=== PATIENT | male | born 1985 | race Caucasian/White ===

== ENCOUNTER 2021-08-09 18:23 | Inpatient (IN) ==
--- NOTE | 2021-08-09 18:44 | Emergency Department Note ---
Impression & Plan Rhabdomyolysis, Margaret, Schizophrenia ED Provider Note Provider: Lauro Tomas MD DATE OF SERVICE: 08/09/2021 CHIEF COMPLAINT: Mental health evaluation, "I feel fine" HISTORY OF PRESENT ILLNESS: Patient is a 36-year-old gentleman history of schizophrenia seen here last month in the ER presenting today brought for mental health evaluation with a 302 petitioning statement. Patient states that he feels fine. Patient denies any depression, anxiety, or thoughts wanting to harm self or others. Patient states he is just at home and was watching the [id number]. Patient denies any drug or alcohol use. Denies any fall. Denies any headache. Patient states he lives at home with his girlfriend Antonia. Patient states that there may have been some stress regarding the cat who seemed a littl e unwell when she was coming in from outside. Patient denies hurting Antonia. Patient states he did hit a hammer on various pieces of furniture but denies hurting himself with this or attempting to hurt anybody else. Patient states that he also generally is at home with his uncle but states his uncle was recently taken away by a person " code named Demi". Patient states when he was discharged from here is on some medication but did better and thus stopped this medication. Patient states he did take it a day but states he has a few more tablets at home. Patient states he does not feel that he needed it anymore. Patient states that he did take his girlfriend to visit his doctor Dr. Pinedo" recently but does not know the date. Patient states he does not believe that he needs inpatient treatment at this time. REVIEW OF SYSTEMS: A total of 10 review of systems was obtained and negative e xcept as stated above in the HPI. PAST MEDICAL HISTORY: As noted above MEDICATIONS: Patient recently discharged on Zyprexa but by his own admission states has not been taking it at least today SOCIAL HISTORY: Denies tobacco use or drug use. PHYSICAL EXAM: GENERAL: alert and oriented ambulatory in the room walking around. Head: normocephalic and atraumatic EYES: No injection, discharge or icterus. NECK: Trachea midline. Supple. ENT: Mucous membranes pink and moist. LUNGS: Airway patent. No retractions. Breath sounds clear with good air entry bilaterally. HEART: Regular mildly tachycardic rate and rhythm. No chest wall tenderness SKIN: Acyanotic, warm, dry, without rashes EXTREMITIES: Without swelling, tenderness or deformity in particular the right upper extremity or hand. NEUROLOGICAL: No focal deficits. No aphasia. No facial droop or slurred speech. Ambulatory. Psych: Patient pacing in the room and denies any SI or HI at this time. Patient does make some grandiose statements at times but not obviously responding to external stimuli at least during my conversation. EK bpm sinus tachycardia. No PVC or PAC. No acute ST segment elevation or depression with a QTC of 465. Patient's laboratory studies reviewed. Differential includes Mood disorder, infection, hypoglycemia, electrolyte abnormalities, cardiac sources, intracerebral event, toxicologic, trauma, neuro logic, as well as other pathologies. IMPRESSION/MEDICAL DECISION MAKING: Patient with history of schizophrenia and reportedly has not been taking his medications. 302 statement reviewed and indicates that his girlfriend Antonia felt unsafe at home with him. Patient denies going to harm self or others. Did make some illusion to using a hammer to hit something but denies again that he wanted to harm anyone. Some of his statements are a little odd and question if he does have some underlying psychosis but does not appear frankly manic at this juncture on my initial interview. Basic labs were obtained. There is no evidence of focal deficit concerning for stroke and there is no reported trauma history concerning for occult trauma at this time. Seen with the case management team. Blood work returns with no anemia but a moderate white blood cell ovation of 20.9. He is afebrile here and denies any significant infectious symptoms or difficulty breathing. He is not hypoxic. Urinalysis not impressive for infection. Covid test was sent. Question if this is more reactive to some of his underlying agitation issues. He has been at this point cooperative here and not aggressive. Case management does reach out to the patient's father and girlfriend. Evidently his father states he has taken the patient's uncle away from the home to [facility] to live given the patient's recent issues. Patient's father wonders if perhaps some longer acting medicine that has less compliance issues may be more beneficial for him. Blood work does return with mild ALT AST elevation but significantly CK elevation over one thousand. Given the patient's somewhat manic state wonder if this has prompted a little bit of rhabdomyolysis. Discussed with the patient and believe IV hydration avoid renal injury is indicated. Discussed with the hospitalist. Patient was begrudgingly agreement for this plan. Patient will need further psychiatric care when medically clear. DIAGNOSIS: Rhabdomyolysis, schizophrenia DISPOSITION: Being evaluated by the hospitalist Past Med/Surg History Medical History Schizophrenia Surgical History H/O abdominal surgery Family History Other Diabetes Social History (Updated 08/09/21 @ 21:46 by Sarah Nobles PA-C) Smoking Status: Never smoker Hx Alcohol Use: No Hx Substance Use: No Current Living Situation: Significant Other Feels Safe at Home: Yes Allergies Allergies Allergy/AdvReac Type Severity Reaction Status Date / Time Penicillins Allergy Mild Rash Verified 07/06/21 07:00 Home Meds Home Medications Medication Instructions Recorded Confirmed melatonin 1 mg tablet 0 mg PO HS 07/06/21 07/06/21 multivitamin 0 tab PO DAILY 07/06/21 07/06/21 Previous Rx's Medication Instructions Recorded olanzapine 2.5 mg tablet (Zyprexa) 2.5 mg PO .AM #30 tab 07/09/21 olanzapine 2.5 mg tablet (Zyprexa) 2.5 mg PO .am #30 tab 07/09/21 olanzapine 5 mg tablet (Zyprexa) 5 mg PO HS #30 tab 07/09/21 olanzapine 5 mg tablet (Zyprexa) 5 mg PO HS #30 tab 07/09/21 Results & Data (ED) Vital Signs Vital Signs - 24 hr 08/09/21 18:24 08/09/21 20:49 Temperature 37.2 C Temperature Source Oral Pulse Rate 140 H Pulse Rate [Left] 136 H Pulse Rhythm [Left] Regular Pulse Strength [Left] Normal Respiratory Rate 20 20 Respiratory Effort / Characteristics Non-Labored Respiratory Depth Normal Blood Pressure 147/97 H Blood Pressure [Left Arm] 163/113 H Blood Pressure Mean 113 Blood Pressure Mean [Left Arm] 129 Blood Pressure Position [Left Arm] Sitting Pulse Oximetry 99 95 Oxygen Delivery Method Room Air Room Air Sepsis Recent Fever Within 48 Hours No Sepsis New/Unexplained Change in Mental Status N/A Sepsis Action Taken by Nursing No Action Required Laboratory Data Result diagrams: 08/09/21 19:17 08/09/21 19:17 Lab Results 08/09/21 08/09/21 08/09/21 Range/Units 18:25 18:25 19:17 WBC 20.93 H (4.8-10.8) K/uL RBC 5.28 (4.7-6.1) M/uL Hgb 15.8 (14.0-18.0) g/dL Hct 47.1 (42-52) % MCV 89.2 (80-100) fL MCH 29.9 (25-34) pg MCHC 33.5 (32-36) g/dL RDW Std Deviation 48.5 H (36.4-46.3) fL RDW Coeff of Bev 14.8 H (11.5-14.5) % Plt Count 320 (130-400) K/uL MPV 9.8 (7.4-10.4) fL Immature Gran % (Auto) 0.5 % Neut % (Auto) 85.7 % Lymph % (Auto) 7.6 % Chambers % (Auto) 5.9 % Eos % (Auto) 0.1 % Baso % (Auto) 0.2 % Neut # (Auto) 17.93 H (1.4-6.5) K/uL Lymph # (Auto) 1.60 (1.2-3.4) K/uL Chambers # (Auto) 1.23 H (0.11-0.59) K/uL Eos # (Auto) 0.03 (0-0.5) K/uL Baso # (Auto) 0.04 (0-0.2) K/uL Immature Gran # (Auto) 0.10 H (0.00-0.02) K/uL Sodium (136-145) mmol/L Potassium (3.5-5.1) mmol/L Chloride (98-107) mmol/L Carbon Dioxide (21-32) mmol/L Anion Gap (3-11) BUN (7-18) mg/dl Creatinine (0.6-1.4) mg/dl Est Cr Clr Drug Dosing ml/min Est GFR ( Amer) ml/min Est GFR (Non-Af Amer) ml/min BUN/Creatinine Ratio (10-20) Glucose (70-99) mg/dl Calcium (8.5-10.1) mg/dl Magnesium (1.8-2.4) mg/dl Total Bilirubin (0.2-1) mg/dl AST (15-37) U/L ALT (12-78) U/L Alkaline Phosphatase (45-117) U/L Total Creatine Kinase (39-308) U/L Troponin I (0-0.045) ng/ml Total Protein (6.4-8.2) gm/dl Albumin (3.4-5.0) gm/dl Globulin (2.5-4.0) gm/dl Albumin/Globulin Ratio (0.9-2) Procalcitonin (0-0.5) ng/ml TSH (0.300-4.500) uIu/ml Urine Color Yellow Urine Appearance Clear (Clear) Urine pH 5.5 (4.5-7.5) Ur Specific [place] 1.018 (1.000-1.030) Urine Protein Negative (Negative) Urine Glucose (UA) Negative (Negative) Urine Ketones Negative (Negative) Urine Blood Trace H (Negative) Urine Nitrite Negative (Negative) Urine Bilirubin Negative (Negative) Urine Urobilinogen Negative (Negative) Ur Leukocyte Esterase Negative (Negative) Urine WBC (Auto) 1-5 (0-5) /hpf Urine RBC (Auto) 0-4 (0-4) /hpf U Hyaline Cast (Auto) 0 (0-5) /lpf U Epithel Cells (Auto) 0-5 (0-5) /lpf Urine Bacteria (Auto) Negative (Negative) Salicylates (2.8-20) mg/dl Urine Opiates Screen Neg (Neg) Ur Methadone, Qual Neg (Neg) Acetaminophen (10-30) ug/ml Urine Barbiturates Neg (Neg) Ur Phencyclidine (PCP) Neg (Neg) U Amphetamin/Meth Scrn Neg (Neg) MDMA (Ecstasy) Screen Neg (Neg) U Benzodiazepines Scrn Neg (Neg) Ur Cocaine Metabolite Neg (Neg) U Marijuana (THC) Screen Neg (Neg) Ethyl Alcohol mg/dL (0-3) mg/dl SARS-CoV-2, RNA, NAAT (NEGATIVE) 08/09/21 08/09/21 08/09/21 Range/Units 19:17 19:17 19:17 WBC (4.8-10.8) K/uL RBC (4.7-6.1) M/uL Hgb (14.0-18.0) g/dL Hct (42-52) % MCV (80-100) fL MCH (25-34) pg MCHC (32-36) g/dL RDW Std Deviation (36.4-46.3) fL RDW Coeff of Bev (11.5-14.5) % Plt Count (130-400) K/uL MPV (7.4-10.4) fL Immature Gran % (Auto) % Neut % (Auto) % Lymph % (Auto) % Chambers % (Auto) % Eos % (Auto) % Baso % (Auto) % Neut # (Auto) (1.4-6.5) K/uL Lymph # (Auto) (1.2-3.4) K/uL Chambers # (Auto) (0.11-0.59) K/uL Eos # (Auto) (0-0.5) K/uL Baso # (Auto) (0-0.2) K/uL Immature Gran # (Auto) (0.00-0.02) K/uL Sodium 136 (136-145) mmol/L Potassium 4.0 (3.5-5.1) mmol/L Chloride 103 (98-107) mmol/L Carbon Dioxide 27 (21-32) mmol/L Anion Gap 6.0 (3-11) BUN 16 (7-18) mg/dl Creatinine 1.20 (0.6-1.4) mg/dl Est Cr Clr Drug Dosing 82.3 ml/min Est GFR ( Amer) 89.6 ml/min Est GFR (Non-Af Amer) 77.3 ml/min BUN/Creatinine Ratio 13.5 (10-20) Glucose 161 H (70-99) mg/dl Calcium 9.6 (8.5-10.1) mg/dl Magnesium 2.3 (1.8-2.4) mg/dl Total Bilirubin 0.5 (0.2-1) mg/dl AST 44 H (15-37) U/L ALT 86 H (12-78) U/L Alkaline Phosphatase 89 (45-117) U/L Total Creatine Kinase 1158 H (39-308) U/L Troponin I < 0.015 (0-0.045) ng/ml Total Protein 7.6 (6.4-8.2) gm/dl Albumin 3.6 (3.4-5.0) gm/dl Globulin 4.0 (2.5-4.0) gm/dl Albumin/Globulin Ratio 0.9 (0.9-2) Procalcitonin (0-0.5) ng/ml TSH 0.765 (0.300-4.500) uIu/ml Urine Color Urine Appearance (Clear) Urine pH (4.5-7.5) Ur Specific [place] (1.000-1.030) Urine Protein (Negative) Urine Glucose (UA) (Negative) Urine Ketones (Negative) Urine Blood (Negative) Urine Nitrite (Negative) Urine Bilirubin (Negative) Urine Urobilinogen (Negative) Ur Leukocyte Esterase (Negative) Urine WBC (Auto) (0-5) /hpf Urine RBC (Auto) (0-4) /hpf U Hyaline Cast (Auto) (0-5) /lpf U Epithel Cells (Auto) (0-5) /lpf Urine Bacteria (Auto) (Negative) Salicylates < 1.7 L (2.8-20) mg/dl Urine Opiates Screen (Neg) Ur Methadone, Qual (Neg) Acetaminophen < 2 L (10-30) ug/ml Urine Barbiturates (Neg) Ur Phencyclidine (PCP) (Neg) U Amphetamin/Meth Scrn (Neg) MDMA (Ecstasy) Screen (Neg) U Benzodiazepines Scrn (Neg) Ur Cocaine Metabolite (Neg) U Marijuana (THC) Screen (Neg) Ethyl Alcohol mg/dL < 3.0 (0-3) mg/dl SARS-CoV-2, RNA, NAAT (NEGATIVE) 08/09/21 08/09/21 Range/Units 19:20 19:24 WBC (4.8-10.8) K/uL RBC (4.7-6.1) M/uL Hgb (14.0-18.0) g/dL Hct (42-52) % MCV (80-100) fL MCH (25-34) pg MCHC (32-36) g/dL RDW Std Deviation (36.4-46.3) fL RDW Coeff of Bev (11.5-14.5) % Plt Count (130-400) K/uL MPV (7.4-10.4) fL Immature Gran % (Auto) % Neut % (Auto) % Lymph % (Auto) % Chambers % (Auto) % Eos % (Auto) % Baso % (Auto) % Neut # (Auto) (1.4-6.5) K/uL Lymph # (Auto) (1.2-3.4) K/uL Chambers # (Auto) (0.11-0.59) K/uL Eos # (Auto) (0-0.5) K/uL Baso # (Auto) (0-0.2) K/uL Immature Gran # (Auto) (0.00-0.02) K/uL Sodium (136-145) mmol/L Potassium (3.5-5.1) mmol/L Chloride (98-107) mmol/L Carbon Dioxide (21-32) mmol/L Anion Gap (3-11) BUN (7-18) mg/dl Creatinine (0.6-1.4) mg/dl Est Cr Clr Drug Dosing ml/min Est GFR ( Amer) ml/min Est GFR (Non-Af Amer) ml/min BUN/Creatinine Ratio (10-20) Glucose (70-99) mg/dl Calcium (8.5-10.1) mg/dl Magnesium (1.8-2.4) mg/dl Total Bilirubin (0.2-1) mg/dl AST (15-37) U/L ALT (12-78) U/L Alkaline Phosphatase (45-117) U/L Total Creatine Kinase (39-308) U/L Troponin I (0-0.045) ng/ml Total Protein (6.4-8.2) gm/dl Albumin (3.4-5.0) gm/dl Globulin (2.5-4.0) gm/dl Albumin/Globulin Ratio (0.9-2) Procalcitonin 0.12 (0-0.5) ng/ml TSH (0.300-4.500) uIu/ml Urine Color Urine Appearance (Clear) Urine pH (4.5-7.5) Ur Specific [place] (1.000-1.030) Urine Protein (Negative) Urine Glucose (UA) (Negative) Urine Ketones (Negative) Urine Blood (Negative) Urine Nitrite (Negative) Urine Bilirubin (Negative) Urine Urobilinogen (Negative) Ur Leukocyte Esterase (Negative) Urine WBC (Auto) (0-5) /hpf Urine RBC (Auto) (0-4) /hpf U Hyaline Cast (Auto) (0-5) /lpf U Epithel Cells (Auto) (0-5) /lpf Urine Bacteria (Auto) (Negative) Salicylates (2.8-20) mg/dl Urine Opiates Screen (Neg) Ur Methadone, Qual (Neg) Acetaminophen (10-30) ug/ml Urine Barbiturates (Neg) Ur Phencyclidine (PCP) (Neg) U Amphetamin/Meth Scrn (Neg) MDMA (Ecstasy) Screen (Neg) U Benzodiazepines Scrn (Neg) Ur Cocaine Metabolite (Neg) U Marijuana (THC) Screen (Neg) Ethyl Alcohol mg/dL (0-3) mg/dl SARS-CoV-2, RNA, NAAT NEGATIVE (NEGATIVE) Administered Medications Discontinued Medications Clonidine HCl (Clonidine Hcl 0.1 Mg Tab) 0.1 mg PO NOW ONE Stop: 08/09/21 21:14 Last Admin: 08/09/21 21:33 Dose: 0.1 mg Documented by: [id number] Sodium Chloride (Nss 1000ml) 1,000 mls @ 999 mls/hr IV .[id number] ONE Stop: 08/09/21 21:32 Last Infusion: 08/09/21 21:46 Dose: 0 mls/hr Documented by: [id number] Admin: 08/09/21 20:45 Dose: 999 mls/hr Documented by: [id number] Discharge Plan Visit Data Chief Complaint: Mental Health Evaluation Stated Complaint: Mental Health Eval ED Provider: Lauro Tomas Discharge Problem: Rhabdomyolysis, Margaret, Schizophrenia Patient Disposition: Admitted As Inpatient Discharge Instructions Interventions: ED Discharge Assessment Last Done: 08/09/21 22:45
[2021-08-09 19:37] LABS: Basophils # (auto) 0.04 K/uL (0-0.2); Basophils % (auto) 0.2 %; Eosinophils # (auto) 0.03 K/uL (0-0.5); Eosinophils % (auto) 0.1 %; Hematocrit (blood only) 47.1 % (42-52); Hemoglobin 15.8 g/dL (14.0-18.0); Immature Granulocytes % (auto) 0.5 %; Lymphocytes % (auto) 7.6 %; Mean Corpuscular Hemoglobin 29.9 pg (25-34); Mean Corpuscular Hgb Conc 33.5 g/dL (32-36); Mean Corpuscular Volume 89.2 fL (80-100); Mean Platelet Volume 9.8 fL (7.4-10.4); Monocytes # (auto) 1.23 K/uL (0.11-0.59); Monocytes % (auto) 5.9 %; Neutrophils # (auto) 17.93 K/uL (1.4-6.5); Neutrophils % (auto) 85.7 %; Platelet Count 320 K/uL (130-400); RDW Coefficient of Variation 14.8 % (11.5-14.5); RDW Standard Deviation 48.5 fL (36.4-46.3); Red Blood Count 5.28 M/uL (4.7-6.1); White Blood Count 20.93 K/uL (4.8-10.8)
[2021-08-09 19:41] LABS: Appearance Urine Clear (Clear); Bacteria Urine Automated Negative (Negative); Bilirubin Urine Negative (Negative); Blood Urine Trace (Negative); Cast Urine Automated 0 /lpf (0-5); Color Urine Yellow; Epithelial Cell Urine Auto 0-5 /lpf (0-5); Glucose Urine UA Negative (Negative); Ketones Urine Negative (Negative); Leukocyte Esterase Urine Negative (Negative); Nitrite Urine Negative (Negative); Protein Urine Negative (Negative); RBC Urine Automated 0-4 /hpf (0-4); Specific Gravity Urine 1.018 (1.000-1.030); Urobilinogen Urine Negative (Negative); pH Urine 5.5 (4.5-7.5)
[2021-08-09 19:53] LABS: Albumin Level 3.6 gm/dl (3.4-5.0); Blood Urea Nitrogen 16 mg/dl (7-18); Calcium 9.6 mg/dl (8.5-10.1); Carbon Dioxide 27 mmol/L (21-32); Chloride 103 mmol/L (98-107); Glucose 161 mg/dl (70-99); Sodium 136 mmol/L (136-145)
[2021-08-09 19:56] LABS: Alanine Aminotransferase 86 U/L (12-78); Aspartate Aminotransferase 44 U/L (15-37); BUN Creatinine Ratio 13.5 (10-20); Creatinine Clr Calc Pharmacy 82.3 ml/min; Est GFR (African American) 89.6 ml/min; Est GFR (Non-African American) 77.3 ml/min
[2021-08-09 20:04] LABS: Acetaminophen < 2 ug/ml (10-30); Salicylate < 1.7 mg/dl (2.8-20)
[2021-08-09 20:12] LABS: Amphetamines+Metham, Urine Neg (Neg); Barbiturates, Urine Neg (Neg); Benzodiazepine, Urine Neg (Neg); Cocaine, Urine Neg (Neg); MDMA (Ecstacy), Urine Neg (Neg); Methadone, Urine Neg (Neg); Opiate, Urine Neg (Neg); Phencyclidine, Urine Neg (Neg)
[2021-08-09 20:15] LABS: Albumin Globulin Ratio 0.9 (0.9-2); Alkaline Phosphatase 89 U/L (45-117); Bilirubin,Total 0.5 mg/dl (0.2-1); Creatine Kinase 1158 U/L (39-308); Thyroid Stimulating Hormone 0.765 uIu/ml (0.300-4.500); Total Protein 7.6 gm/dl (6.4-8.2); Troponin I < 0.015 ng/ml (0-0.045)
[2021-08-09] MEDS ORDERED: SODIUM CHLORIDE 0.9% 1000ML 1,000 ML IV ONE (20:32)
[2021-08-09 20:59] LABS: Magnesium 2.3 mg/dl (1.8-2.4)
[2021-08-09] MEDS ORDERED: cloNIDine HCL 0.1 MG TAB PO ONE (21:13)
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
[2021-08-09] MEDS ORDERED: OLANZapine 10 MG/2.1 ML SDV IM PRN (21:41)
[2021-08-09] MEDS ORDERED: PROMETHAZINE HCL 12.5 MG in SODIUM CHLORIDE 0.9% 50 ML IV PRN (23:12)
[2021-08-09] MEDS ORDERED: ACETAMINOPHEN 325 MG TAB PO PRN (23:12)
[2021-08-10] MEDS ORDERED: MELATONIN 3 MG TAB PO ONE (00:30)
[2021-08-10] MEDS: LACTATED RINGER'S 1,000 ML IV SCH ×3 (00:33→19:57)
[2021-08-10 06:59] LABS: Estimated Average Glucose 140 mg/dl; Hemoglobin A1C 6.5 % (4.5-5.6)
[2021-08-10] MEDS ORDERED: FLUARIX QUADRIVALENT 0.5 ML SYR IM ONE (09:00)
[2021-08-10 09:11] LABS: Basophils # (auto) 0.03 K/uL (0-0.2); Basophils % (auto) 0.2 %; Eosinophils # (auto) 0.11 K/uL (0-0.5); Eosinophils % (auto) 0.9 %; Hematocrit (blood only) 44.3 % (42-52); Hemoglobin 14.6 g/dL (14.0-18.0); Immature Granulocytes # (auto) 0.04 K/uL (0.00-0.02); Immature Granulocytes % (auto) 0.3 %; Lymphocytes # (auto) 2.02 K/uL (1.2-3.4); Lymphocytes % (auto) 16.2 %; Mean Corpuscular Hemoglobin 29.9 pg (25-34); Mean Corpuscular Volume 90.8 fL (80-100); Mean Platelet Volume 10.1 fL (7.4-10.4); Monocytes # (auto) 0.68 K/uL (0.11-0.59); Monocytes % (auto) 5.5 %; Neutrophils # (auto) 9.59 K/uL (1.4-6.5); Neutrophils % (auto) 76.9 %; Platelet Count 281 K/uL (130-400); RDW Coefficient of Variation 15.2 % (11.5-14.5); RDW Standard Deviation 51.1 fL (36.4-46.3); Red Blood Count 4.88 M/uL (4.7-6.1); White Blood Count 12.47 K/uL (4.8-10.8)
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
[2021-08-10 09:42] LABS: Albumin Globulin Ratio 0.8 (0.9-2); BUN Creatinine Ratio 12.4 (10-20); Bilirubin,Total 0.6 mg/dl (0.2-1); Calcium 8.6 mg/dl (8.5-10.1); Est GFR (African American) 92.4 ml/min; Est GFR (Non-African American) 79.7 ml/min; Globulin 3.7 gm/dl (2.5-4.0); Total Protein 6.7 gm/dl (6.4-8.2)
[2021-08-10] MEDS: ENOXAPARIN INJ 40 MG/0.4 ML SYR SQ SCH (10:13)
[2021-08-10 10:26] LABS: Potassium 4.1 mmol/L (3.5-5.1)
--- NOTE | 2021-08-10 13:34 | Hospitalist Progress Note ---
Date of Service August 10, 2021 Assessment & Plan (1) Schizophrenia: Plan: Present on admission after having psychosis behavior Pt stopped taking his Olanzapine 3 days ago Psych on board Pt 302 warrant until medical clearance He is not allowed to leave the hospital AMA as per psych Pt will need inpatient hospitalization for monitoring/stabilization (2) Rhabdomyolysis: Plan: CK level on admission 1158 on admission Currently on IVF CK level 799 Will D/C IVF medically stable to transfer to psych (3) Leukocytosis: Plan: WBC elevated at 20.93K Mostly reactive WBC 12.4K today Procalcitonin within normal No sign of infection Elevated BP BP has been fluctuated Possible related to hospital setting Will consider to start amlodipine 5 mg daily Continue monitor BP DM type 2 Most recent Hba1c 6.5 Continue monitor your BS Counseling on lifestyle modification and weight loss DVT px on Lovenox subq Code status Full code Disposition medically clear to transfer to the mental health unit Admission and Anticipated Discharge Date Admission Date: August 09, 2021 Subjective Pt was seen and examined for follow up of abnormal behavior and elevate CK level Sitting in bed with no acute distress Pt said that he feels fine Denies any chest pain, palpitation, dizziness, N/V and SOB Review of Systems Review of Systems: General- No acute distress Head- atraumatic Eyes- PERRL, EOMI, ENT- oropharynx clear Neck- supple, no JVD Lungs- clear to auscultation Heart- regular rhythm; no murmur Abdomen- normal bowel sounds, soft, nontender Extremities- no calf tenderness Neuro- alert, oriented x 3; PERRL, EOMI; no facial palsy; no dysarthria Skin- warm & dry Physical Exam Physical Exam: General- No acute distress Head- atraumatic Eyes- PERRL, EOMI, ENT- oropharynx clear Neck- supple, no JVD Lungs- clear to auscultation Heart- regular rhythm; no murmur Abdomen- normal bowel sounds, soft, nontender Extremities- no calf tenderness Neuro- alert, oriented x 3; PERRL, EOMI; no facial palsy; no dysarthria Skin- warm & dry Results & Data Results & Data ([facility]) Vital Signs (Past 12 Hours) Vital Signs Temp Pulse Pulse Resp BP BP Pulse Ox 08/10/21 11:30 101 H 08/10/21 08:00 37 C 112 H 20 159/112 H 153/108 H 98 08/10/21 02:58 36.7 C 117 H 20 144/77 H 99 (1) Rhabdomyolysis Rhabdomyolysis type: non-traumatic Qualified Code(s): M62.82 - Rhabdomyolysis (2) Schizophrenia Schizophrenia type: unspecified Qualified Code(s): F20.9 - Schizophrenia, unspecified
[2021-08-10] MEDS ORDERED: cloNIDine HCL 0.1 MG TAB PO PRN (14:23)
[2021-08-10] MEDS: OLANZapine 10 MG/2.1 ML SDV IM PRN (20:30)
[2021-08-10] MEDS ORDERED: amLODIPine BESYLATE 5 MG TAB PO ONE (21:00)
[2021-08-10] MEDS ORDERED: MELATONIN 3 MG TAB PO SCH (21:00)
[2021-08-11] MEDS ORDERED: LORazepam 1 MG/2 ML VIAL IV STA (01:32)
--- NOTE | 2021-08-11 06:52 | Electrocardiogram Report ---
Test Reason : Blood Pressure : / mmHG Vent. Rate : 129 BPM Atrial Rate : 129 BPM P-R Int : 138 ms QRS Dur : 084 ms QT Int : 318 ms P-R-T Axes : 054 059 039 degrees QTc Int : 465 ms Poor data quality, interpretation may be adversely affected Sinus tachycardia Otherwise normal ECG When compared with ECG of 07-JUL-2021 15:28, No significant change was found Confirmed by Chevy Mitchell ([id number]) on 08/11/2021 6:52:07 AM Referred By: REFERRED SELF Confirmed By:Chevy Mitchell
[2021-08-11 07:41] LABS: BUN Creatinine Ratio 14.2 (10-20); Calcium 8.3 mg/dl (8.5-10.1); Creatinine Clr Calc Pharmacy 113.8 ml/min; Est GFR (African American) 98.5 ml/min; Potassium 4.2 mmol/L (3.5-5.1)
[2021-08-11] MEDS: ENOXAPARIN INJ 40 MG/0.4 ML SYR SQ SCH (08:34)
[2021-08-11] MEDS: OLANZapine 10 MG/2.1 ML SDV IM PRN (08:35)
[2021-08-11] MEDS ORDERED: amLODIPine BESYLATE 5 MG TAB PO SCH (09:00)
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
--- NOTE | 2021-08-11 12:41 | Hospitalist Progress Note ---
Date of Service August 11, 2021 Assessment & Plan (1) Schizophrenia: Plan: per previous attending note Dr. Monique: Present on admission after having psychosis behavior Pt stopped taking his Olanzapine 3 days ago Psych on board Pt 302 warrant until medical clearance He is not allowed to leave the hospital AMA as per psych Pt will need inpatient hospitalization for monitoring/stabilization 08/11 stable from medical standpoint to transition to for further Psyc Care (2) Rhabdomyolysis: Plan: CK level on admission 1158 on admission Currently on IVF given IV NSS CK further improved to 701 please encourage to drink plenty of water daily (3) Leukocytosis: Plan: WBC elevated at 20.93K Mostly reactive improved to 12.4K Procalcitonin within normal No signs of infection identified Hypertension Amlodipine 5mg po daily started BP improving asymptomatic monitor daily DM type 2 Hba1c 6.5 continue DM diet Counseling on lifestyle modification and weight loss ff up with PCP closely, 1 week after hospital discharge DVT px on Lovenox subq given Code status Full code Disposition transfer to the behavioral health unit Admission and Anticipated Discharge Date Admission Date: August 09, 2021 Subjective ff up for schizophrenia, rhabdomyolysis, HTN, etc seen resting in bed, comfortable, sitting up SKIMMER at bedside throughout whole exam calm, comfortable answers most questions appropriately states he feels fine overall no chest pain, dyspnea, palpitations, dizziness no abdominal pain, nausea, headache no fever/chills no problems with urination states mood is ok- denies depression, anxiety, suicidal ideation no other symptoms states he is ready for discharge and transition to Review of Systems Review of Systems: all noted and negative except for above Physical Exam Physical Exam: General- oriented x 2, not in distress, speaks in sentences with no effort or accessory muscle use Eyes- anicteric Neck- no JVD Lungs- clear breath sounds bilaterally, no rales/wheezes Heart- mild tachycardia, regular rhythm; no murmurs Abdomen- normal bowel sounds, nondistended, soft, nontender Extremities- no pretibial edema, no calf tenderness Neuro- alert, oriented x 1; no gross focal neurologic deficits Skin- warm & dry Psych- somewhat flat affect Results & Data Results & Data ([facility]) Vital Signs (Past 12 Hours) Vital Signs Temp Pulse Pulse Pulse Resp BP Pulse Ox 08/11/21 11:52 36.6 C 118 H 18 149/92 H 95 08/11/21 08:33 36.8 C 119 H 18 145/95 H 96 08/11/21 07:34 104 H 08/11/21 03:12 36.8 C 121 H 18 128/62 97 08/11/21 01:15 110 H all noted and reviewed including below (1) Schizophrenia Schizophrenia type: unspecified Qualified Code(s): F20.9 - Schizophrenia, unspecified (2) Rhabdomyolysis Rhabdomyolysis type: non-traumatic Qualified Code(s): M62.82 - Rhabdomyolysis
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
== END 2021-08-11 14:37 | DRG 558 ==
LOC: ED 18:23 → 2N 21:37 → SUATTDRO 21:37 → 2N 22:45

== ENCOUNTER 2021-08-10 14:33 | Inpatient (IN) ==
[2021-08-10] MEDS ORDERED: hydrOXYzine HCl 25 MG TAB PO PRN ×2 (22:41)
[2021-08-10] MEDS ORDERED: ALUMINUM/MAGNESIUM SUSP 30 ML UDC PO PRN (22:41)
[2021-08-10] MEDS ORDERED: BISMUTH SUBSALICYLATE LIQD 236 ML PO PRN (22:41)
[2021-08-10] MEDS ORDERED: MAGNESIUM HYDROXIDE SUSP 30 ML UDC PO PRN (22:41)
[2021-08-10] MEDS ORDERED: ACETAMINOPHEN 325 MG TAB PO PRN (22:41)
[2021-08-10] MEDS ORDERED: SODIUM CHLORIDE 0.65% NA SOLN 45 ML (OCEAN) PRN (22:41)
[2021-08-10] MEDS ORDERED: OLANZapine 5 MG TABLET PO PRN (22:49)
[2021-08-11] MEDS ORDERED: BISMUTH SUBSALICYLATE LIQD 236 ML PO PRN (13:50)
[2021-08-11] MEDS ORDERED: SODIUM CHLORIDE 0.65% NA SOLN 45 ML (OCEAN) PRN (13:50)
[2021-08-11] MEDS ORDERED: MAGNESIUM HYDROXIDE SUSP 30 ML UDC PO PRN (13:50)
[2021-08-11] MEDS ORDERED: hydrOXYzine HCl 25 MG TAB PO PRN ×2 (13:50)
[2021-08-11] MEDS ORDERED: ALUMINUM/MAGNESIUM SUSP 30 ML UDC PO PRN (13:50)
[2021-08-11] MEDS ORDERED: OLANZapine 10 MG/2.1 ML SDV IM PRN (14:01)
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
[2021-08-11] MEDS: OLANZapine 5 MG TABLET PO PRN (18:57)
[2021-08-11] MEDS: LORazepam 1 MG TAB PO PRN (18:58)
[2021-08-11] MEDS ORDERED: OLANZapine 5 MG TABLET PO SCH (22:00)
[2021-08-12] MEDS: OLANZapine 5 MG TABLET PO PRN ×2 (05:49→12:38)
[2021-08-12] MEDS: LORazepam 1 MG TAB PO PRN ×2 (05:49→12:38)
[2021-08-12] MEDS: amLODIPine BESYLATE 5 MG TAB PO SCH (08:03)
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
[2021-08-12] MEDS: cloNIDine HCL 0.1 MG TAB PO PRN (12:07)
[2021-08-12] MEDS ORDERED: HALOPERIDOL LACTATE 5 MG/ML 1 ML VIAL IM PRN (14:10)
[2021-08-12] MEDS ORDERED: LORazepam 2 MG/ML VIAL (IM USE) IM PRN (14:10)
[2021-08-12] MEDS ORDERED: BENZTROPINE MESYLATE 1 MG/ML 2 ML AMP IM PRN (14:12)
[2021-08-12] MEDS: cloNIDine HCL 0.1 MG TAB PO SCH (17:18)
[2021-08-12] MEDS: OLANZapine 10 MG TAB PO SCH (21:33)
[2021-08-13] MEDS: LORazepam 1 MG TAB PO PRN ×2 (00:25→13:50)
[2021-08-13] MEDS: OLANZapine 5 MG TABLET PO PRN ×2 (00:30→13:56)
[2021-08-13 06:17] LABS: Chol HDL Ratio 4; Cholesterol 140 mg/dl (0-200); HDL Cholesterol 32 mg/dl; LDL Cholesterol Calculated 83 mg/dl; Triglycerides 126 mg/dl (0-150); VLDL Cholesterol 25 mg/dl
[2021-08-13] MEDS: amLODIPine BESYLATE 5 MG TAB PO SCH (09:26)
[2021-08-13] MEDS: cloNIDine HCL 0.1 MG TAB PO SCH (09:26)
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
[2021-08-13] MEDS ORDERED: COUGH DROP (SUGAR FREE) LOZ 24 LOZ/1 BOX BUCCAL PRN (10:17)
[2021-08-13] MEDS: OLANZapine 10 MG TAB PO SCH ×2 (10:33→20:51)
[2021-08-13] MEDS: PROPRANOLOL HCL 10 MG TAB PO SCH ×2 (13:46→20:51)
[2021-08-13] MEDS: MELATONIN 3 MG TAB PO SCH (21:04)
[2021-08-14] MEDS: PROPRANOLOL HCL 10 MG TAB PO SCH (07:44)
[2021-08-14] MEDS: amLODIPine BESYLATE 5 MG TAB PO SCH (07:44)
[2021-08-14] MEDS: OLANZapine 10 MG TAB PO SCH ×2 (07:45→21:11)
[2021-08-14] MEDS: PROPRANOLOL HCL 20 MG TAB PO SCH ×2 (10:54→21:11)
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
[2021-08-14] MEDS: MELATONIN 3 MG TAB PO SCH (21:11)
[2021-08-15] MEDS: PROPRANOLOL HCL 20 MG TAB PO SCH ×2 (07:55→21:13)
[2021-08-15] MEDS: OLANZapine 10 MG TAB PO SCH ×2 (07:55→21:13)
[2021-08-15] MEDS: amLODIPine BESYLATE 5 MG TAB PO SCH (07:55)
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
[2021-08-15] MEDS: MELATONIN 3 MG TAB PO SCH (21:13)
[2021-08-16] MEDS: amLODIPine BESYLATE 5 MG TAB PO SCH (08:16)
[2021-08-16] MEDS: OLANZapine 10 MG TAB PO SCH (08:16)
[2021-08-16] MEDS: PROPRANOLOL HCL 20 MG TAB PO SCH ×2 (08:17→21:19)
[2021-08-16] MEDS: OLANZapine 5 MG TABLET PO PRN (11:33)
--- NOTE | 2021-08-16 11:43 | Psychiatric Progress Note ---
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 Admit on a 302 commitment for ongoing delusions, ideas of reference, periods of restlessness and inappropriate comments. He is responding to zyprexa. He is on MNPR due to unpredictable behavior and sexual preoccupations related to his psychosis. 08/16/21: some improvement in psychosis with initiation of zyprexa but he continues to be responding to internal stimuli and presenting with symptoms of psychosis. Plan: reviewed interim notes from Dr. Lucero. Adjust dosing to reduce daytime fatigue which he consents to. (1) Unspecified psychosis not due to a substance or known physiological condition: (2) Hypertension: 08/16/21: Due to sedation during the day will reduce zyprexa to 5 mg qAM & 15 mg qHS for continued total daily dose of 20mg. Continues to have periods of asymptomatic tachycardia, continuing to monitor and he is taking propranolol and amlodipine. Encouraging healthy diet to reduce metabolic risk factors as he remains uninterested in metformin trial. 08/15/21: some sedation this am, will dose Zyprexa 5 mg tomorrow am consider staying at that dose or shifting the remaining 5 mg to bedtime. Still working on safe transportation for period following discharge. Patient currently agreeing not to drive as "nothing to drive". CM. discussed his Hgb A1C and states "I'll change my diet", offered a trial of metformin and he declined. He continued to refuse conversion to another agent or AQUINO. Patient now understands risks/benefits of ongoing hospitalization and is agreeable to other aspects of treatment plan so converted to 201. 08/14/21: continue current medications and treatment plan as improving. He continues to deny desire/need for AQUINO. Reviewed that longer term use of Zyprexa may contribute to hyperglycemia. Likely metformin candidate. Increase propranolol for tachy to 20 mg BID. 08/13/21: d/c standing clonidine in favor of propranolol to target restlessness and tachy, continue current dose of Zyprexa given total daily dose with prns. Consider Depakote trial if no improvement in next 24 hrs. Today he is only agreeing to take melatonin at night as far as med changes. 08/12/21: based on hs and prn use, will increase Zyprexa to 10 mg BID (previously said he would refuse), he reports willing to do "what it takes to get out of here". Will add standing clonidine order as his BP and pulse remain elevated despite Norvasc. MNPR. 08/11/21: The patient was admitted to the [facility] on q15 min checks (behavioral with suicide precautions) for safety. The patient will participate in group, recreational, and milieu therapies and will be offered additional individual and family sessions as clinically appropriate. Will be offered Zyprexa 5 mg po qhs tonight with additional available PO/IM for agitation. Ativan 1 mg q 6 prn anxiety/agitation as well. He cleared rather quickly with it previously in the ED so hopefully can have more detailed discussion around risks/benefits/alternatives and switch to Invega and AQUINO, particularly given A1C. His BP/P are likely somewhat related to psychosis/andrew but will monitor, continue BP meds from the floor and obtain additional collateral from patient's family/partner re: social history. [place] 4 [place] due [place] so determination re: extending commitment will need to occur early on 08/16/21. Will need to consider report to [place] [employer]. Inventory Assets Strengths: has family support, maintained self in community for >15 years between episodes Needs: compliance with medication, confirmation of outpatient providers Risk Factors Assessment Male: Yes : Yes Do You Have Access To A Gun?: Yes (father to be removing over [place]) Mental Health Diagnoses: Yes Substance Use Disorders: No Previous Attempt: No Previous Psychiatric Hospitalization: Yes Protective Factors Assessment : No Responsible for Young Children: No Supportive Family: Yes Interval History Identifying Information Nabil is a 36 yo male with a history of disorganized psychosis who was brought to the ED for mental health assessment on a 302 warrant and admitted medically 08/09/21 for leukocytosis and mild rhabdo. He was transferred from the medical floor on 08/11/21 and is now on 201 status Chief Complaint "We need this to communicate". Review of Systems Sleep Information Total Hours of Sleep: 6 Sleep Comments: Pt on q-15 minute checks Meal Information Percent Meal Consumed - Breakfast: 100 Percent Meal Consumed - Lunch: 100 Percent Meal Consumed - Dinner: 100 Nutrition Comment: pt asleep at this time. he did have a bowl of cereal prior to breakfast Subjective Subjective Patient was seen & assessed and interval progress reviewed with treatment team nursing and social work. Continues to respond to internal stimuli, making odd gestures, blinking, whispering and demonstrating paranoia. Today reports stable mood though appears anxious and paranoid, avoids walking in certain spots in the [place] and whispers to himself about odd topics regarding space that are difficult to follow. Blinks and points with his fingers and tells me this is due to "it's better this way" in reference seemingly to needing to communicate with me in a secretive manner. He reports some dry mouth and daytime sedation from the zyprexa. Discussed option of changing the timing of the dosages which he consents to. Physical Exam Psychiatric Orientation: alert and oriented x 3 Apperance: appropriately dressed and + disheveled Eye Contact: + fair eye contact Motor Behavior: steady gait and station and no abnormal motor movements Speech: normal rate/rhythm/volume of speech Affect: + flat affect Mood: + anxious mood; no depressed mood Thought Process: + thought blocking and + looseness of associations Thought Content: + preoccupation, + paranoid and + delusions Suicidal Thoughts: denies suicidal thoughts Homicidal Thoughts: denies homicidal thoughts Hallucinations: + auditory hallucinations Cognition: recent memory grossly intact, remote memory grossly intact and language grossly intact; + attention not intact Insight: + impaired insight Judgement: + impaired judgement Vital Signs (Past 24 Hours) Last Vital Signs Temp 36.7 C 08/16/21 06:29 Pulse 101 H 08/16/21 06:29 Resp 18 08/16/21 06:29 BP 121/75 08/16/21 06:29 Pulse Ox 98 08/14/21 21:14 Results & Data ([facility]) Current Inpatient Medications Current Inpatient Medications: Current Inpatient Medications Acetaminophen (Acetaminophen 325 Mg Tab) 650 mg PO Q4H PRN PRN Reason: Headache or Minor Fever Stop: 09/10/21 13:49 Al Hydrox/Mg Hydrox/Simethicone (Aluminum/Magnesium Susp 30 Ml Udc) 30 ml PO Q4H PRN PRN Reason: GI Upset Stop: 09/10/21 13:49 Amlodipine Besylate (Amlodipine Besylate 5 Mg Tab) 5 mg PO QAM REGINA Stop: 09/11/21 08:59 Last Admin: 08/16/21 08:16 Dose: 5 mg Documented by: Benztropine Mesylate (Benztropine Mesylate 1 Mg/Ml 2 Ml Amp) 1 mg IM Q6 PRN PRN Reason: Agitation Stop: 09/11/21 14:11 Bismuth Subsalicylate (Bismuth Subsalicylate Liqd 236 Ml) 15 ml PO PRN PRN PRN Reason: Loose Stool Stop: 09/10/21 13:49 Clonidine HCl (Clonidine Hcl 0.1 Mg Tab) 0.1 mg PO Q8H PRN PRN Reason: hypertension Stop: 09/10/21 13:59 Last Admin: 08/12/21 12:07 Dose: 0.1 mg Documented by: Haloperidol Lactate (Haloperidol Lactate 5 Mg/Ml 1 Ml Vial) 10 mg IM Q6 PRN PRN Reason: Agitation Stop: 09/11/21 14:09 Hydroxyzine HCl (Hydroxyzine Hcl 25 Mg Tab) 50 mg PO HSZ PRN PRN Reason: Insomnia Stop: 09/10/21 13:49 Hydroxyzine HCl (Hydroxyzine Hcl 25 Mg Tab) 25 mg PO Q4H PRN PRN Reason: Anxiety Stop: 09/10/21 13:49 Last Admin: 08/12/21 13:56 Dose: 25 mg Documented by: Lorazepam (Lorazepam 1 Mg Tab) 1 mg PO Q6 PRN PRN Reason: Anxiety/Agitation Stop: 09/10/21 14:02 Last Admin: 08/13/21 13:50 Dose: 1 mg Documented by: Lorazepam (Lorazepam 2 Mg/Ml Vial (Im Use)) 2 mg IM Q6 PRN PRN Reason: Agitation Stop: 09/11/21 14:09 Magnesium Hydroxide (Magnesium Hydroxide Susp 30 Ml Udc) 30 ml PO DAILY PRN PRN Reason: Constipation Stop: 09/10/21 13:49 Last Admin: 08/12/21 22:31 Dose: 30 ml Documented by: Melatonin (Melatonin 3 Mg Tab) 9 mg PO HS REGINA Stop: 09/12/21 21:59 Last Admin: 08/15/21 21:13 Dose: 9 mg Documented by: Menthol (Cough Drop (Sugar Free) Christiano 24 Christiano/1 Box) 1 christiano BUCCAL Q1HWA PRN PRN Reason: Sore Throat Stop: 09/12/21 10:16 Olanzapine (Olanzapine 5 Mg Tablet) 5 mg PO Q6 PRN PRN Reason: Anxiety/Agitation Stop: 09/10/21 17:59 Last Admin: 08/16/21 11:33 Dose: 5 mg Documented by: Olanzapine (Olanzapine 10 Mg Tab) 10 mg PO BID REGINA Stop: 09/11/21 20:59 Last Admin: 08/16/21 08:16 Dose: 10 mg Documented by: Propranolol HCl (Propranolol Hcl 20 Mg Tab) 20 mg PO BID REGINA Stop: 09/13/21 08:59 Last Admin: 08/16/21 08:17 Dose: 20 mg Documented by: Sodium Chloride (Sodium Chloride 0.65% Na Soln 45 Ml ([place])) 1 - 2 sprays NA PRN PRN PRN Reason: Nasal Dryness/Congestion Stop: 09/10/21 13:49 Mental Health & Subst Abuse Tx Psychiatrist Name of Psychiatrist: [facility] Psychiatrist's Date of Appointment with Psychiatrist: 08/31/21 Time of Appointment with Psychiatrist: 2:45pm arrival time Psychiatric Appointment Comment: [address] [place] [address] Title Assistant Name of Title Assistant: Britany Aldridge Phone Number for Title Assistant: [phone] Post Discharge Appointments Primary Care Physician Name Of Family Doctor: [facility] Date of Appointment with PCP: 08/23/21 Time of Appointment with PCP: 2:45p arrival time Provider Appointment Comment: [address] [place] [id number] Contact Information Discharge Discharge Address: [address] [place] [address], [place] [id number]
[2021-08-16] MEDS: cloNIDine HCL 0.1 MG TAB PO PRN (15:02)
[2021-08-16] MEDS: OLANZapine 5 MG TABLET PO SCH (21:20)
[2021-08-16] MEDS: MELATONIN 3 MG TAB PO SCH (21:20)
[2021-08-17] MEDS: PROPRANOLOL HCL 20 MG TAB PO SCH ×2 (08:56→21:54)
[2021-08-17] MEDS: amLODIPine BESYLATE 5 MG TAB PO SCH (08:56)
[2021-08-17] MEDS: OLANZapine 5 MG TABLET PO SCH ×2 (08:56→21:53)
--- NOTE | 2021-08-17 15:39 | Psychiatric Progress Note ---
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 Admit on a 302 commitment for ongoing delusions, ideas of reference, periods of restlessness and inappropriate comments. He is responding to zyprexa. Diagnostically seems most consistent with possible andrew especially given poor sleep. He is on MNPR due to unpredictable behavior, paranoia, bizarre behaviors and sexual preoccupations related to his psychosis. 08/17/21: some improvement in psychosis with initiation of zyprexa but he con tinues to be responding to internal stimuli and presenting with symptoms of psychosis and still with poor sleep even with high dose olanzapine. Plan: discussed added ativan prn at qhs which he consents to. (1) Unspecified psychosis not due to a substance or known physiological condition: (2) Hypertension: 08/17/21: continue with olanzapine 20mg total daily dose. Adding ativan 1 mg qhs prn given concern for andrew with poor sleep. 08/16/21: Due to sedation during the day will reduce zyprexa to 5 mg qAM & 15 mg qHS for continued total daily dose of 20mg. Continues to have periods of asymptomatic tachycardia, continuing to monitor and he is taking propranolol and amlodipine. Encouraging healthy diet to reduce metabolic risk factors as he remains uninterested in metformin trial. 08/15/21: some sedation this am, will dose Zyprexa 5 mg tomorrow am consider staying at that dose or shifting the remaining 5 mg to bedtime. Still working on safe transportation for period following discharge. Patient currently agreeing not to drive as "nothing to drive". CM. discussed his Hgb A1C and states "I'll change my diet", offered a trial of metformin and he declined. He continued to refuse conversion to another agent or AQUINO. Patient now understands risks/benefits of ongoing hospitalization and is agreeable to other aspects of treatment plan so converted to 201. 08/14/21: continue current medications and treatment plan as improving. He continues to deny desire/need for AQUINO. Reviewed that longer term use of Zyprexa may contribute to hyperglycemia. Likely metformin candidate. Increase propranolol for tachy to 20 mg BID. 08/13/21: d/c standing clonidine in favor of propranolol to target restlessness and tachy, continue current dose of Zyprexa given total daily dose with prns. Consider Depakote trial if no improvement in next 24 hrs. Today he is only agreeing to take melatonin at night as far as med changes. 08/12/21: based on hs and prn use, will increase Zyprexa to 10 mg BID (previously said he would refuse), he reports willing to do "what it takes to get out of here". Will add standing clonidine order as his BP and pulse remain elevated despite Norvasc. MNPR. 08/11/21: The patient was admitted to the [facility] ([facility] inpatient mental health unit) on q15 min checks (behavioral with suicide precautions) for safety. The patient will participate in group, recreational, and milieu therapies and will be offered additional individual and family sessions as clinically appropriate. Will be offered Zyprexa 5 mg po qhs tonight with additional available PO/IM for agitation. Ativan 1 mg q 6 prn anxiety/agitation as well. He cleared rather quickly with it previously in the ED so hopefully can have more detailed discussion around risks/benefits/alternatives and switch to Invega and AQUINO, particularly given A1C. His BP/P are likely somewhat related to psychosis/andrew but will monitor, continue BP meds from the floor and obtain a dditional collateral from patient's family/partner re: social history. [place] 4 [place] so determination re: extending commitment will need to occur early on 08/16/21. Will need to consider report to [place] [employer]. Inventory Assets Strengths: has family support, maintained self in community for >15 years between episodes Needs: compliance with medication, confirmation of outpatient providers Risk Factors Assessment Male: Yes : Yes Do You Have Access To A Gun?: Yes (father to be removing over [place]) Mental Health Diagnoses: Yes Substance Use Disorders: No Previous Attempt: No Previous Psychiatric Hospitalization: Yes Protective Factors Assessment : No Responsible for Young Children: No Supportive Family: Yes Interval History Identifying Information Nabil is a 36 yo male with a history of disorganized psychosis who was brought to the ED for mental health assessment on a 302 warrant and admitted medically 08/09/21 for leukocytosis and mild rhabdo. He was transferred from the medical floor on 08/11/21 and is now on 201 status Chief Complaint "I think I've shared too much". Review of Systems Sleep Information Total Hours of Sleep: 4.0 Sleep Comments: Pt on q-15 minute checks Meal Information Percent Meal Consumed - Breakfast: 100 Percent Meal Consumed - Lunch: 100 Percent Meal Consumed - Dinner: 100 Nutrition Comment: pt asleep at this time. he did have a bowl of cereal prior to breakfast Subjective Subjective Patient was seen & assessed and interval progress reviewed with treatment team nursing and social work. Nabil remains very paranoid with evidence of responding to internal stimuli, thought blocking, and ideas of reference regarding the TV. Observed shouting out "alpha, beta epsilon" which he states is related to Star [employer]. Continues to attempt to communicate in "brain waves" by blinking and holding his forehead/temples in odd mannerisms. When I attempt to ask more about this communication he becomes more paranoid whispering and stating "I think I've shared too much". Remains reluctant to talk unless we're walking around. Slept poorly last night. Agreeable to having additional prn for this. Feels less sedated today with change in timing of olanzapine dose. Physical Exam Psychiatric Orientation: alert and oriented x 3 Apperance: appropriately dressed and + disheveled Eye Contact: + fair eye contact Motor Behavior: steady gait and station and no abnormal motor movements Speech: normal rate/rhythm/volume of speech Affect: + flat affect Mood: + anxious mood Thought Process: + thought blocking and + looseness of associations Thought Content: + preoccupation, + paranoid, + delusions, + ideas of reference and + derealization Suicidal Thoughts: denies suicidal thoughts Homicidal Thoughts: denies homicidal thoughts Hallucinations: + auditory hallucinations; no visual hallucinations Cognition: recent memory grossly intact, remote memory grossly intact and langua ge grossly intact; + attention not intact Estimated Intelligence: consistent with education level Insight: + impaired insight and + severely impaired insight Judgement: + impaired judgement Vital Signs (Past 24 Hours) Last Vital Signs Temp 36.5 C 08/17/21 06:41 Pulse 112 H 08/17/21 13:33 Resp 18 08/17/21 13:33 BP 139/86 08/17/21 13:33 Pulse Ox 98 08/14/21 21:14 Results & Data ([facility] [[email or web address] Current Inpatient Medications Current Inpatient Medications: Current Inpatient Medications Acetaminophen (Acetaminophen 325 Mg Tab) 650 mg PO Q4H PRN PRN Reason: Headache or Minor Fever Stop: 09/10/21 13:49 Al Hydrox/Mg Hydrox/Simethicone (Aluminum/Magnesium Susp 30 Ml Udc) 30 ml PO Q4H PRN PRN Reason: GI Upset Stop: 09/10/21 13:49 Amlodipine Besylate (Amlodipine Besylate 5 Mg Tab) 5 mg PO QAM REGINA Stop: 09/11/21 08:59 Last Admin: 08/17/21 08:56 Dose: 5 mg Documented by: Benztropine Mesylate (Benztropine Mesylate 1 Mg/Ml 2 Ml Amp) 1 mg IM Q6 PRN PRN Reason: Agitation Stop: 09/11/21 14:11 Bismuth Subsalicylate (Bismuth Subsalicylate Liqd 236 Ml) 15 ml PO PRN PRN PRN Reason: Loose Stool Stop: 09/10/21 13:49 Clonidine HCl (Clonidine Hcl 0.1 Mg Tab) 0.1 mg PO Q8H PRN PRN Reason: hypertension Stop: 09/10/21 13:59 Last Admin: 08/16/21 15:02 Dose: 0.1 mg Documented by: Haloperidol Lactate (Haloperidol Lactate 5 Mg/Ml 1 Ml Vial) 10 mg IM Q6 PRN PRN Reason: Agitation Stop: 09/11/21 14:09 Hydroxyzine HCl (Hydroxyzine Hcl 25 Mg Tab) 50 mg PO HSZ PRN PRN Reason: Insomnia Stop: 09/10/21 13:49 Hydroxyzine HCl (Hydroxyzine Hcl 25 Mg Tab) 25 mg PO Q4H PRN PRN Reason: Anxiety Stop: 09/10/21 13:49 Last Admin: 08/12/21 13:56 Dose: 25 mg Documented by: Lorazepam (Lorazepam 1 Mg Tab) 1 mg PO Q6 PRN PRN Reason: Anxiety/Agitation Stop: 09/10/21 14:02 Last Admin: 08/13/21 13:50 Dose: 1 mg Documented by: Lorazepam (Lorazepam 2 Mg/Ml Vial (Im Use)) 2 mg IM Q6 PRN PRN Reason: Agitation Stop: 09/11/21 14:09 Magnesium Hydroxide (Magnesium Hydroxide Susp 30 Ml Udc) 30 ml PO DAILY PRN PRN Reason: Constipation Stop: 09/10/21 13:49 Last Admin: 08/12/21 22:31 Dose: 30 ml Documented by: Melatonin (Melatonin 3 Mg Tab) 9 mg PO HS REGINA Stop: 09/12/21 21:59 Last Admin: 08/16/21 21:20 Dose: 9 mg Documented by: Menthol (Cough Drop (Sugar Free) Christiano 24 Christiano/1 Box) 1 christiano BUCCAL Q1HWA PRN PRN Reason: Sore Throat Stop: 09/12/21 10:16 Olanzapine (Olanzapine 5 Mg Tablet) 5 mg PO Q6 PRN PRN Reason: Anxiety/Agitation Stop: 09/10/21 17:59 Last Admin: 08/16/21 11:33 Dose: 5 mg Documented by: Olanzapine (Olanzapine 5 Mg Tablet) 5 mg PO QAM REGINA Stop: 09/16/21 08:59 Last Admin: 08/17/21 08:56 Dose: 5 mg Documented by: Olanzapine (Olanzapine 5 Mg Tablet) 15 mg PO HS REGINA Stop: 09/15/21 21:59 Last Admin: 08/16/21 21:20 Dose: 15 mg Documented by: Propranolol HCl (Propranolol Hcl 20 Mg Tab) 20 mg PO BID REGINA Stop: 09/13/21 08:59 Last Admin: 08/17/21 08:56 Dose: 20 mg Documented by: Sodium Chloride (Sodium Chloride 0.65% Na Soln 45 Ml ([place])) 1 - 2 sprays NA PRN PRN PRN Reason: Nasal Dryness/Congestion Stop: 09/10/21 13:49 Mental Health & Subst Abuse Tx Psychiatrist Name of Psychiatrist: [facility] Psych[facility]rist's Date of Appointment with Psychiatrist: 08/31/21 Time of Appointment with Psychiatrist: 2:45pm arrival time Psychiatric Appointment Comment: [address] [place] [id number] Software Tools Build Engineer Name of Software Tools Build Engineer: Britany Aldridge Phone Number for Software Tools Build Engineer: [phone] Post Discharge Appointments Primary Care Physician Name Of Family Doctor: M[facility] Ramesh [facility] Date of Appointment with PCP: 08/23/21 Time of Appointment with PCP: 3pm Provider Appointment Comment: [address] [place] [id number] Contact Information Discharge Discharge Address: [address] [place] [address], [place] [id number]
[2021-08-17] MEDS: MELATONIN 3 MG TAB PO SCH (21:54)
[2021-08-17] MEDS: LORazepam 1 MG TAB PO PRN (22:23)
[2021-08-18] MEDS: OLANZapine 5 MG TABLET PO SCH ×2 (08:36→21:26)
[2021-08-18] MEDS: amLODIPine BESYLATE 5 MG TAB PO SCH (08:36)
[2021-08-18] MEDS: PROPRANOLOL HCL 20 MG TAB PO SCH ×2 (08:37→21:25)
--- NOTE | 2021-08-18 16:57 | Psychiatric Progress Note ---
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 Admit on a 302 commitment for ongoing delusions, ideas of reference, periods of restlessness and inappropriate comments. He is responding to zyprexa. Diagnostically seems most consistent with possible andrew especially given poor sleep. He is on MNPR due to unpredictable behavior, paranoia, bizarre behaviors and sexual preoccupations related to his psychosis. 08/18/21: fewer disorganized symptoms and less psychomotor agitation but contin ues to present with psychosis and symptoms of likely andrew. Goal of improving sleep and continuing with olanzapine. Long-term goal would be consideration of lithium as mood stabilizer given metabolic risk factors with olanzapine and patient already with significant central abdominal obesity at baseline but for now given diagnostic uncertainty and slow improvement with olanzapine will continue with this. Plan: continue with olanzapine, BP reviewed and improved today, reviewed past EKGs which consistently have shown sinus tachycardia and he remains asymptomatic. (1) Unspecified psychosis not due to a substance or known physiological condition: (2) Hypertension: 08/18/21: continue olanzapine and ativan. 08/17/21: continue with olanzapine 20mg total daily dose. Adding ativan 1 mg qhs prn given concern for andrew with poor sleep. 08/16/21: Due to sedation during the day will reduce zyprexa to 5 mg qAM & 15 mg qHS for continued total daily dose of 20mg. Continues to have periods of asymptomatic tachycardia, continuing to monitor and he is taking propranolol and amlodipine. Encouraging healthy diet to reduce metabolic risk factors as he re vinny uninterested in metformin trial. 08/15/21: some sedation this am, will dose Zyprexa 5 mg tomorrow am consider staying at that dose or shifting the remaining 5 mg to bedtime. Still working on safe transportation for period following discharge. Patient currently agreeing not to drive as "nothing to drive". CM. discussed his Hgb A1C and states "I'll change my diet", offered a trial of metformin and he declined. He continued to refuse conversion to another agent or AQUINO. Patient now understands risks/benefits of ongoing hospitalization and is agreeable to other aspects of treatment plan so converted to 201. 08/14/21: continue current medications and treatment plan as improving. He continues to deny desire/need for AQUINO. Reviewed that longer term use of Zyprexa may contribute to hyperglycemia. Likely metformin candidate. Increase propranolol for tachy to 20 mg BID. 08/13/21: d/c standing clonidine in favor of propranolol to target restlessness and tachy, continue current dose of Zyprexa given total daily dose with prns. Consider Depakote trial if no improvement in next 24 hrs. Today he is only agreeing to take melatonin at night as far as med changes. 08/12/21: based on hs and prn use, will increase Zyprexa to 10 mg BID (previously said he would refuse), he reports willing to do "what it takes to get out of here". Will add standing clonidine order as his BP and pulse remain elevated despite Norvasc. MNPR. 08/11/21: The patient was admitted to the [facility] ([facility] mental health unit) on q15 min checks (behavioral with suicide precautions) for safety. The patient will participate in group, recreational, and milieu therapies and will be offered additional individual and family sessions as clinically appropriate. Will be offered Zyprexa 5 mg po qhs tonight with additional available PO/IM for agitation. Ativan 1 mg q 6 prn anxiety/agitation as well. He cleared rather quickly with it previously in the ED so hopefully can have more detailed discussion around risks/benefits/alternatives and switch to Invega and AQUINO, particularly given A1C. His BP/P are likely somewhat related to psychosis/andrew but will monitor, continue BP meds from the floor and obtain additional collateral from patient's family/partner re: social history. The county is closed for next 4 days due [place] so determination re: extending commitment will need to occur early on 08/16/21. Will need to consider report to [place] [employer]. Inventory Assets Strengths: has family support, maintained self in community for >15 years between episodes Needs: compliance with medication, confirmation of outpatient providers Risk Factors Assessment Male: Yes : Yes Do You Have Access To A Gun?: Yes (father to be removing over ) Mental Health Diagnoses: Yes Substance Use Disorders: No Previous Attempt: No Previous Psychiatric Hospitalization: Yes Protective Factors Assessment : No Responsible for Young Children: No Supportive Family: Yes Interval History Identifying Information Nabil is a 36 yo male with a history of disorganized psychosis who was brought to the ED for mental health assessment on a 302 warrant and admitted medically 08/09/21 for leukocytosis and mild rhabdo. He was transferred from the medical floor on 08/11/21 and is now on 201 status Chief Complaint "Hi". Review of Systems Sleep Information Total Hours of Sleep: 6.75 Sleep Comments: Pt on q-15 minute checks Meal Information Percent Meal Consumed - Breakfast: 100 Percent Meal Consumed - Lunch: 100 Percent Meal Consumed - Dinner: 100 Nutrition Comment: pt asleep at this time. he did have a bowl of cereal prior to breakfast Subjective Subjective Patient was seen & assessed and interval progress reviewed with treatment team nursing and social work. Nabil continues to be quite fixated on toileting rituals such as wanting to use multiple wet wipes and raising concern to staff that the toilet is overflowing even when it's functioning just fine. He's still needing help to select meals, will try to order just a lemon slice or other disorganized meal options. Slept better last night after taking ativan. Remains adherent with medications. He feels sedation has improved with lower morning dose of olanzapine. Physical Exam Psychiatric Orientation: alert and oriented x 3 Apperance: appropriately dressed and + disheveled Eye Contact: + fair eye contact Motor Behavior: steady gait and station and + psychomotor agitation Speech: + loud speech Affect: + labile affect Mood: + anxious mood; no depressed mood Thought Process: + thought blocking, + tangential thought process and + looseness of associations Thought Content: + preoccupation, + paranoid, + delusions and + ideas of reference Suicidal Thoughts: denies suicidal thoughts Homicidal Thoughts: denies homicidal thoughts Hallucinations: + auditory hallucinations; no visual hallucinations Cognition: recent memory grossly intact, remote memory grossly intact and language grossly intact; + attention not intact Insight: + severely impaired insight Judgement: + impaired judgement Vital Signs (Past 24 Hours) Last Vital Signs Temp 36.8 C 08/18/21 14:10 Pulse 118 H 08/18/21 14:12 Resp 18 08/18/21 14:10 BP 135/82 08/18/21 14:12 Pulse Ox 98 08/14/21 21:14 Results & Data ([facility]) Current Inpatient Medications Current Inpatient Medications: Current Inpatient Medications Acetaminophen (Acetaminophen 325 Mg Tab) 650 mg PO Q4H PRN PRN Reason: Headache or Minor Fever Stop: 09/10/21 13:49 Al Hydrox/Mg Hydrox/Simethicone (Aluminum/Magnesium Susp 30 Ml Udc) 30 ml PO Q4H PRN PRN Reason: GI Upset Stop: 09/10/21 13:49 Amlodipine Besylate (Amlodipine Besylate 5 Mg Tab) 5 mg PO QAM REGINA Stop: 09/11/21 08:59 Last Admin: 08/18/21 08:36 Dose: 5 mg Documented by: Benztropine Mesylate (Benztropine Mesylate 1 Mg/Ml 2 Ml Amp) 1 mg IM Q6 PRN PRN Reason: Agitation Stop: 09/11/21 14:11 Bismuth Subsalicylate (Bismuth Subsalicylate Liqd 236 Ml) 15 ml PO PRN PRN PRN Reason: Loose Stool Stop: 09/10/21 13:49 Clonidine HCl (Clonidine Hcl 0.1 Mg Tab) 0.1 mg PO Q8H PRN PRN Reason: hypertension Stop: 09/10/21 13:59 Last Admin: 08/16/21 15:02 Dose: 0.1 mg Documented by: Haloperidol Lactate (Haloperidol Lactate 5 Mg/Ml 1 Ml Vial) 10 mg IM Q6 PRN PRN Reason: Agitation Stop: 09/11/21 14:09 Hydroxyzine HCl (Hydroxyzine Hcl 25 Mg Tab) 50 mg PO HSZ PRN PRN Reason: Insomnia Stop: 09/10/21 13:49 Hydroxyzine HCl (Hydroxyzine Hcl 25 Mg Tab) 25 mg PO Q4H PRN PRN Reason: Anxiety Stop: 09/10/21 13:49 Last Admin: 08/12/21 13:56 Dose: 25 mg Documented by: Lorazepam (Lorazepam 1 Mg Tab) 1 mg PO Q6 PRN PRN Reason: Anxiety/Agitation Stop: 09/10/21 14:02 Last Admin: 08/13/21 13:50 Dose: 1 mg Documented by: Lorazepam (Lorazepam 2 Mg/Ml Vial (Im Use)) 2 mg IM Q6 PRN PRN Reason: Agitation Stop: 09/11/21 14:09 Lorazepam (Lorazepam 1 Mg Tab) 1 mg PO HS PRN PRN Reason: Anxiety/Insomnia Stop: 09/16/21 15:38 Last Admin: 08/17/21 22:23 Dose: 1 mg Documented by: Magnesium Hydroxide (Magnesium Hydroxide Susp 30 Ml Udc) 30 ml PO DAILY PRN PRN Reason: Constipation Stop: 09/10/21 13:49 Last Admin: 08/12/21 22:31 Dose: 30 ml Documented by: Melatonin (Melatonin 3 Mg Tab) 9 mg PO HS REGINA Stop: 09/12/21 21:59 Last Admin: 08/17/21 21:54 Dose: 9 mg Documented by: Menthol (Cough Drop (Sugar Free) Christiano 24 Christiano/1 Box) 1 christiano BUCCAL Q1HWA PRN PRN Reason: Sore Throat Stop: 09/12/21 10:16 Olanzapine (Olanzapine 5 Mg Tablet) 5 mg PO Q6 PRN PRN Reason: Anxiety/Agitation Stop: 09/10/21 17:59 Last Admin: 08/16/21 11:33 Dose: 5 mg Documented by: Olanzapine (Olanzapine 5 Mg Tablet) 5 mg PO QAM REGINA Stop: 09/16/21 08:59 Last Admin: 08/18/21 08:36 Dose: 5 mg Documented by: Olanzapine (Olanzapine 5 Mg Tablet) 15 mg PO HS REGINA Stop: 09/15/21 21:59 Last Admin: 08/17/21 21:53 Dose: 15 mg Documented by: Propranolol HCl (Propranolol Hcl 20 Mg Tab) 20 mg PO BID REGINA Stop: 09/13/21 08:59 Last Admin: 08/18/21 08:37 Dose: 20 mg Documented by: Sodium Chloride (Sodium Chloride 0.65% Na Soln 45 Ml ([place])) 1 - 2 sprays NA PRN PRN PRN Reason: Nasal Dryness/Congestion Stop: 09/10/21 13:49 Mental Health & Subst Abuse Tx Psychiatrist Name of Psychiatrist: [facility] Psychiatrist's Date of Appointment with Psychiatrist: 08/31/21 Time of Appointment with Psychiatrist: 2:45pm arrival time Psychiatric Appointment Comment: [address] [place] [address] Senior Software Project Manager Name of Senior Software Project Manager: Britany Aldridge Phone Number for Senior Software Project Manager: [phone] Post Discharge Appointments Primary Care Physician Name Of Family Doctor: [facility] Ramesh [facility] Date of Appointment with PCP: 08/23/21 Time of Appointment with PCP: 3pm Provider Appointment Comment: [address] [place] [address] Contact Information Discharge Discharge Address: [address] [place] [address], [place] [id number]
[2021-08-18] MEDS: MELATONIN 3 MG TAB PO SCH (21:25)
[2021-08-18] MEDS: LORazepam 1 MG TAB PO PRN (23:08)
[2021-08-19] MEDS: PROPRANOLOL HCL 20 MG TAB PO SCH ×2 (08:07→20:43)
[2021-08-19] MEDS: OLANZapine 5 MG TABLET PO SCH (08:07)
[2021-08-19] MEDS: amLODIPine BESYLATE 5 MG TAB PO SCH (08:09)
--- NOTE | 2021-08-19 15:53 | Psychiatric Progress Note ---
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 Admit on a 302 commitment for ongoing delusions, ideas of reference, periods of restlessness and inappropriate comments. Diagnostically seems most consistent with possible andrew especially given poor sleep versus schizoaffective disorder or schizophrenia. Given ongoing symptoms of psychosis, poor sleep and Nabil's high metabolic risk given prominent abdominal obesity, high BMI, significantly increased appetite on zyprexa and elevated BP and tachycardia we discussed my recommendation that we transition to risperidone with goals of improved symptom management and slightly lower risk of metabolic effects. He consents to this. He is on MNPR due to unpredictable behavior, paranoia, bizarre behaviors and sexual preoccupations related to his psychosis. 08/19/21: fewer disorganized symptoms and less psychomotor agitation but contin ues to present with psychosis and symptoms of andrew vs primary psychotic disorder. With exception of sleep no other classic symptoms of andrew. Plan: begin cross-taper from olanzapine to risperidone (1) Unspecified psychosis not due to a substance or known physiological condition: (2) Hypertension: 08/19/21: reduce olanzapine to 10mg qHS and start risperidone 0.5 mg BID. 08/18/21: continue olanzapine and ativan. 08/17/21: continue with olanzapine 20mg total daily dose. Adding ativan 1 mg qhs prn given concern for andrew with poor sleep. 08/16/21: Due to sedation during the day will reduce zyprexa to 5 mg qAM & 15 mg qHS for continued total daily dose of 20mg. Continues to have periods of asymptomatic tachycardia, continuing to monitor and he is taking propranolol and amlodipine. Encouraging healthy diet to reduce metabolic risk factors as he remains uninterested in metformin trial. 08/15/21: some sedation this am, will dose Zyprexa 5 mg tomorrow am consider staying at that dose or shifting the remaining 5 mg to bedtime. Still working on safe transportation for period following discharge. Patient currently agreeing not to drive as "nothing to drive". CM. discussed his Hgb A1C and states "I'll change my diet", offered a trial of metformin and he declined. He continued to refuse conversion to another agent or AQUINO. Patient now understands risks/benefits of ongoing hospitalization and is agreeable to other aspects of treatment plan so converted to 201. 08/14/21: continue current medications and treatment plan as improving. He continues to deny desire/need for AQUINO. Reviewed that longer term use of Zyprexa may contribute to hyperglycemia. Likely metformin candidate. Increase propranolol for tachy to 20 mg BID. 08/13/21: d/c standing clonidine in favor of propranolol to target restlessness and tachy, continue current dose of Zyprexa given total daily dose with prns. Consider Depakote trial if no improvement in next 24 hrs. Today he is only agreeing to take melatonin at night as far as med changes. 08/12/21: based on hs and prn use, will increase Zyprexa to 10 mg BID (previously said he would refuse), he reports willing to do "what it takes to get out of here". Will add standing clonidine order as his BP and pulse remain elevated despite Norvasc. MNPR. 08/11/21: The patient was admitted to the [facility] ([facility] mental health unit) on q15 min checks (behavioral with suicide precautions) for safety. The patient will participate in group, recreational, and milieu therapies and will be offered additional individual and family sessions as clinically appropriate. Will be offered Zyprexa 5 mg po qhs tonight with additional available PO/IM for agitation. Ativan 1 mg q 6 prn anxiety/agitation as well. He cleared rather quickly with it previously in the ED so hopefully can have more detailed discussion around risks/benefits/alternatives and switch to Invega and AQUINO, particularly given A1C. His BP/P are likely somewhat related to psychosis/andrew but will monitor, continue BP meds from the floor and obtain additional collateral from patient's family/partner re: social history. [place] so determination re: extending commitment will need to occur early on 08/16/21. Will need to consider report to [place] [employer]. Inventory Assets Strengths: has family support, maintained self in community for >15 years between episodes Needs: compliance with medication, confirmation of outpatient providers Risk Factors Assessment Male: Yes : Yes Do You Have Access To A Gun?: Yes (father to be removing over gi) Mental Health Diagnoses: Yes Substance Use Disorders: No Previous Attempt: No Previous Psychiatric Hospitalization: Yes Protective Factors Assessment : No Responsible for Young Children: No Supportive Family: Yes Interval History Identifying Information Nabil is a 36 yo male with a history of disorganized psychosis who was brought to the ED for mental health assessment on a 302 warrant and admitted medically 08/09/21 for leukocytosis and mild rhabdo. He was transferred from the medical floor on 08/11/21 and is now on 201 status Chief Complaint "I tried to take a nap but I couldn't sleep". Review of Systems Sleep Information Total Hours of Sleep: 5.75 Sleep Comments: Pt on q-15 minute checks Meal Information Percent Meal Consumed - Breakfast: 100 Percent Meal Consumed - Lunch: 100 Percent Meal Consumed - Dinner: 100 Nutrition Comment: pt asleep at this time. he did have a bowl of cereal prior to breakfast Subjective Subjective Patient was seen & assessed and interval progress reviewed with treatment team nursing and social work. Nabil continues to make bizarre statements and references about Star [employer], becomes hyperfocused on the washing machine/dryer and toilets wanting to look at the piping connections, and speaking about ideas of reference from watching TV and movies. 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 He remains paranoid wishing to only speak to me once we are walking around the unit and he presents with some hypervigilance and guardedness during these conversations. Discussed option of considering a cross-taper from olanzapine to risperidone which he is agreeable to. Physical Exam Psychiatric Orientation: alert and oriented x 3 Apperance: appropriately dressed and appropriately groomed Eye Contact: + fair eye contact Motor Behavior: steady gait and station and no abnormal motor movements Speech: + loud speech; no pressured speech Affect: + flat affect Mood: + anxious mood Thought Process: + thought blocking and + looseness of associations Thought Content: + preoccupation, + paranoid, + delusions and + ideas of reference Suicidal Thoughts: denies suicidal thoughts Homicidal Thoughts: denies homicidal thoughts Hallucinations: + auditory hallucinations; no visual hallucinations Cognition: recent memory grossly intact, remote memory grossly intact and language grossly intact; + attention not intact Insight: + impaired insight Judgement: + impaired judgement Vital Signs (Past 24 Hours) Last Vital Signs Temp 36.6 C 08/19/21 06:00 Pulse 112 H 08/19/21 06:53 Resp 16 08/19/21 06:00 BP 142/107 H 08/19/21 06:53 Pulse Ox 98 08/14/21 21:14 Results & Data ([facility]) Current Inpatient Medications Current Inpatient Medications: Current Inpatient Medications Acetaminophen (Acetaminophen 325 Mg Tab) 650 mg PO Q4H PRN PRN Reason: Headache or Minor Fever Stop: 09/10/21 13:49 Al Hydrox/Mg Hydrox/Simethicone (Aluminum/Magnesium Susp 30 Ml Udc) 30 ml PO Q4H PRN PRN Reason: GI Upset Stop: 09/10/21 13:49 Amlodipine Besylate (Amlodipine Besylate 5 Mg Tab) 5 mg PO QAM REGINA Stop: 09/11/21 08:59 Last Admin: 08/19/21 08:09 Dose: 5 mg Documented by: Benztropine Mesylate (Benztropine Mesylate 1 Mg/Ml 2 Ml Amp) 1 mg IM Q6 PRN PRN Reason: Agitation Stop: 09/11/21 14:11 Bismuth Subsalicylate (Bismuth Subsalicylate Liqd 236 Ml) 15 ml PO PRN PRN PRN Reason: Loose Stool Stop: 09/10/21 13:49 Clonidine HCl (Clonidine Hcl 0.1 Mg Tab) 0.1 mg PO Q8H PRN PRN Reason: hypertension Stop: 09/10/21 13:59 Last Admin: 08/16/21 15:02 Dose: 0.1 mg Documented by: Haloperidol Lactate (Haloperidol Lactate 5 Mg/Ml 1 Ml Vial) 10 mg IM Q6 PRN PRN Reason: Agitation Stop: 09/11/21 14:09 Hydroxyzine HCl (Hydroxyzine Hcl 25 Mg Tab) 50 mg PO HSZ PRN PRN Reason: Insomnia Stop: 09/10/21 13:49 Hydroxyzine HCl (Hydroxyzine Hcl 25 Mg Tab) 25 mg PO Q4H PRN PRN Reason: Anxiety Stop: 09/10/21 13:49 Last Admin: 08/12/21 13:56 Dose: 25 mg Documented by: Lorazepam (Lorazepam 1 Mg Tab) 1 mg PO Q6 PRN PRN Reason: Anxiety/Agitation Stop: 09/10/21 14:02 Last Admin: 08/13/21 13:50 Dose: 1 mg Documented by: Lorazepam (Lorazepam 2 Mg/Ml Vial (Im Use)) 2 mg IM Q6 PRN PRN Reason: Agitation Stop: 09/11/21 14:09 Lorazepam (Lorazepam 1 Mg Tab) 1 mg PO HS PRN PRN Reason: Anxiety/Insomnia Stop: 09/16/21 15:38 Last Admin: 08/18/21 23:08 Dose: 1 mg Documented by: Magnesium Hydroxide (Magnesium Hydroxide Susp 30 Ml Udc) 30 ml PO DAILY PRN PRN Reason: Constipation Stop: 09/10/21 13:49 Last Admin: 08/12/21 22:31 Dose: 30 ml Documented by: Melatonin (Melatonin 3 Mg Tab) 9 mg PO HS REGINA Stop: 09/12/21 21:59 Last Admin: 08/18/21 21:25 Dose: 9 mg Documented by: Menthol (Cough Drop (Sugar Free) Christiano 24 Christiano/1 Box) 1 christiano BUCCAL Q1HWA PRN PRN Reason: Sore Throat Stop: 09/12/21 10:16 Olanzapine (Olanzapine 5 Mg Tablet) 5 mg PO Q6 PRN PRN Reason: Anxiety/Agitation Stop: 09/10/21 17:59 Last Admin: 08/16/21 11:33 Dose: 5 mg Documented by: Olanzapine (Olanzapine 5 Mg Tablet) 5 mg PO QAM REGINA Stop: 09/16/21 08:59 Last Admin: 08/19/21 08:07 Dose: 5 mg Documented by: Olanzapine (Olanzapine 5 Mg Tablet) 15 mg PO HS REGINA Stop: 09/15/21 21:59 Last Admin: 08/18/21 21:26 Dose: 15 mg Documented by: Propranolol HCl (Propranolol Hcl 20 Mg Tab) 20 mg PO BID REGINA Stop: 09/13/21 08:59 Last Admin: 08/19/21 08:07 Dose: 20 mg Documented by: Sodium Chloride (Sodium Chloride 0.65% Na Soln 45 Ml ([place])) 1 - 2 sprays NA PRN PRN PRN Reason: Nasal Dryness/Congestion Stop: 09/10/21 13:49 Mental Health & Subst Abuse Tx Psychiatrist Name of Psychiatrist: [facility] Psychiatrist's Date of Appointment with Psychiatrist: 08/31/21 Time of Appointment with Psychiatrist: 2:45pm arrival time [address] [place] [address] Latin Dance Instructor Name of Latin Dance Instructor: Britany Conner Phone Number for Latin Dance Instructor: [phone] Post Discharge Appointments Primary Care Physician Name Of Family Doctor: [facility] Ramesh Primary [facility] Date of Appointment with PCP: 08/23/21 Time of Appointment with PCP: 3pm Provider Appointment Comment: [address] [place] [id number] Contact Information Discharge Discharge Address: [address] [place] [address], [place] [id number]
[2021-08-19] MEDS: risperiDONE 0.5 MG TABLET PO SCH (20:42)
[2021-08-19] MEDS: LORazepam 1 MG TAB PO PRN (20:42)
[2021-08-19] MEDS: MELATONIN 3 MG TAB PO SCH (20:44)
[2021-08-19] MEDS ORDERED: OLANZapine 10 MG TAB PO SCH (22:00)
[2021-08-20] MEDS: PROPRANOLOL HCL 20 MG TAB PO SCH ×2 (08:07→20:55)
[2021-08-20] MEDS: amLODIPine BESYLATE 5 MG TAB PO SCH (08:08)
[2021-08-20] MEDS: risperiDONE 0.5 MG TABLET PO SCH (08:08)
[2021-08-20] MEDS: ACETAMINOPHEN 325 MG TAB PO PRN ×2 (11:26→16:50)
[2021-08-20] MEDS: IBUPROFEN 200 MG TAB PO PRN (14:52)
--- NOTE | 2021-08-20 16:29 | Psychiatric Progress Note ---
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 Admit on a 302 commitment for ongoing delusions, ideas of reference, periods of restlessness and inappropriate comments. Diagnostic picture remains unclear-certainly has many symptoms of andrew such as poor sleep, psychomotor activation, elevated mood and hypersexuality early in admission but no evidence of speech changes, no grandiosity and mood remains fairly stable. Schizophrenia could certainly be consistent with paranoia, delusions, constricted affect and odd beliefs. He is on MNPR due to unpredictable behavior, paranoia, bizarre behaviors and sexual preoccupations related to his psychosis. 08/19/21: fewer disorganized symptoms and less psychomotor agitation but continues to present with psychosis and symptoms of andrew vs primary psychotic disorder. Continue with risperidone cross-taper especially in context of significant weight gain since starting olanzapine. Continues to have poor sleep, increasing ativan to help with this which he consents to. Plan: continue cross- taper from olanzapine to risperidone and limiting snacks and caloric drinks between meals. (1) Unspecified psychosis not due to a substance or known physiological condition: (2) Hypertension: 08/20/21: reduce olanzapine to 5 mg qHS and increase risperidone to 1 mg BID. Will limit snacks and caloric beverages between meals given metabolic risk factors and significant weight gain since admission. Also increasing ativan to help with sleep. Added ibuprofen for foot pain. 08/19/21: reduce olanzapine to 10mg qHS and start risperidone 0.5 mg BID. 08/18/21: continue olanzapine and ativan. 08/17/21: continue with olanzapine 20mg total daily dose. Adding ativan 1 mg qhs prn given concern for andrew with poor sleep. 08/16/21: Due to sedation during the day will reduce zyprexa to 5 mg qAM & 15 mg qHS for continued total daily dose of 20mg. Continues to have periods of asymptomatic tachycardia, continuing to monitor and he is taking propranolol and amlodipine. Encouraging healthy diet to reduce metabolic risk factors as he remains uninterested in metformin trial. 08/15/21: some sedation this am, will dose Zyprexa 5 mg tomorrow am consider staying at that dose or shifting the remaining 5 mg to bedtime. Still working on safe transportation for period following discharge. Patient currently agreeing not to drive as "nothing to drive". CM. discussed his Hgb A1C and states "I'll change my diet", offered a trial of metformin and he declined. He continued to refuse conversion to another agent or AQUINO. Patient now understands risks/benefits of ongoing hospitalization and is agreeable to other aspects of treatment plan so converted to 201. 08/14/21: continue current medications and treatment plan as improving. He continues to deny desire/need for AQUINO. Reviewed that longer term use of Zyprexa may contribute to hyperglycemia. Likely metformin candidate. Increase propranolol for tachy to 20 mg BID. 08/13/21: d/c standing clonidine in favor of propranolol to target restlessness and tachy, continue current dose of Zyprexa given total daily dose with prns. Consider Depakote trial if no improvement in next 24 hrs. Today he is only agreeing to take melatonin at night as far as med changes. 08/12/21: based on hs and prn use, will increase Zyprexa to 10 mg BID (previously said he would refuse), he reports willing to do "what it takes to get out of here". Will add standing clonidine order as his BP and pulse remain elevated despite Norvasc. MNPR. 08/11/21: [facility] ([facility] mental health unit) on q15 min checks (behavioral with suicide precautions) for safety. The patient will participate in group, recreational, and milieu therapies and will be offered additional individual and family sessions as clinically appropriate. Will be offered Zyprexa 5 mg po qhs tonight with additional available PO/IM for agitation. Ativan 1 mg q 6 prn anxiety/agitation as well. He cleared rather quickly with it previously in the ED so hopefully can have more detailed discussion around risks/benefits/alternatives and switch to Invega and AQUINO, particularly given A1C. His BP/P are likely somewhat related to psychosis/andrew but will monitor, continue BP meds from the floor and obtain additional collateral from patient's family/partner re: social history. [facility] closed for next 4 days due to [place] so determination re: extending commitment will need to occur early on 08/16/21. Will need to consider report to [place] [employer]. Inventory Assets Strengths: has family support, maintained self in community for >15 years between episodes Needs: compliance with medication, confirmation of outpatient providers Risk Factors Assessment Male: Yes : Yes Do You Have Access To A Gun?: Yes (father to be removing over Thanksgiving) Mental Health Diagnoses: Yes Substance Use Disorders: No Previous Attempt: No Previous Psychiatric Hospitalization: Yes Protective Factors Assessment : No Responsible for Young Children: No Supportive Family: Yes Interval History Identifying Information Nabil is a 36 yo male with a history of disorganized psychosis who was brought to the ED for mental health assessment on a 302 warrant and admitted medically 08/09/21 for leukocytosis and mild rhabdo. He was transferred from the medical floor on 08/11/21 and is now on 201 status Chief Complaint blinks his eyes in rapid pattern and states "it means [place]" Review of Systems Sleep Information Total Hours of Sleep: 5 Sleep Comments: pt on q-15 minute checks Meal Information Percent Meal Consumed - Breakfast: 100 Percent Meal Consumed - Lunch: 100 Percent Meal Consumed - Dinner: 100 Nutrition Comment: pt asleep at this time. he did have a bowl of cereal prior to breakfast Subjective Subjective Patient was seen & assessed and interval progress reviewed with treatment team nursing and social work. Continues to have significant symptoms of psychosis including bizarre behaviors of blinking to communicate, spending most of the day walking around the unit with psychomotor activation, and reduced sleep. Continues to have increased appetite with frequent snacking and drinking lots of juice, gained 20lbs in the last 10 days. Today reports pain from callus which has formed on his foot. He continues to feel he needs to walk around a lot. Blinks repeatedly in an attempt to communciate with me and points to his brain stating "because of this" and then says "its' [place] from [employer]". Reports elevated mood. Reports some fatigue today but denies any other side effects from risperidone. Understands that I've put in order to limit caloric behaviors and snacks between meals to limit weight gain and agrees to this. Physical Exam Psychiatric Orientation: alert and oriented x 3 Apperance: appropriately dressed and appropriately groomed Eye Contact: + fair eye contact Motor Behavior: steady gait and station and + psychomotor agitation Speech: normal rate/rhythm/volume of speech; no pressured speech Affect: + constricted affect Mood: no depressed mood Thought Process: + thought blocking and + looseness of associations Thought Content: + preoccupation, + paranoid, + delusions and + ideas of reference Suicidal Thoughts: denies suicidal thoughts Homicidal Thoughts: denies homicidal thoughts Hallucinations: + auditory hallucinations; no visual hallucinations Cognition: recent memory grossly intact, remote memory grossly intact and language grossly intact; + attention not intact Insight: + impaired insight Judgement: + impaired judgement Vital Signs (Past 24 Hours) Last Vital Signs Temp 36.5 C 08/20/21 14:00 Pulse 116 H 08/20/21 14:00 Resp 17 08/20/21 14:00 BP 133/89 08/20/21 14:00 Pulse Ox 95 08/19/21 21:02 Results & Data ([facility]) Current Inpatient Medications Current Inpatient Medications: Current Inpatient Medications Acetaminophen (Acetaminophen 325 Mg Tab) 650 mg PO Q4H PRN PRN Reason: Headache or Minor Fever Stop: 09/10/21 13:49 Last Admin: 08/20/21 11:26 Dose: 650 mg Documented by: Al Hydrox/Mg Hydrox/Simethicone (Aluminum/Magnesium Susp 30 Ml Udc) 30 ml PO Q4H PRN PRN Reason: GI Upset Stop: 09/10/21 13:49 Amlodipine Besylate (Amlodipine Besylate 5 Mg Tab) 5 mg PO QAM REGINA Stop: 09/11/21 08:59 Last Admin: 08/20/21 08:08 Dose: 5 mg Documented by: Benztropine Mesylate (Benztropine Mesylate 1 Mg/Ml 2 Ml Amp) 1 mg IM Q6 PRN PRN Reason: Agitation Stop: 09/11/21 14:11 Bismuth Subsalicylate (Bismuth Subsalicylate Liqd 236 Ml) 15 ml PO PRN PRN PRN Reason: Loose Stool Stop: 09/10/21 13:49 Clonidine HCl (Clonidine Hcl 0.1 Mg Tab) 0.1 mg PO Q8H PRN PRN Reason: hypertension Stop: 09/10/21 13:59 Last Admin: 08/16/21 15:02 Dose: 0.1 mg Documented by: Haloperidol Lactate (Haloperidol Lactate 5 Mg/Ml 1 Ml Vial) 10 mg IM Q6 PRN PRN Reason: Agitation Stop: 09/11/21 14:09 Hydroxyzine HCl (Hydroxyzine Hcl 25 Mg Tab) 50 mg PO HSZ PRN PRN Reason: Insomnia Stop: 09/10/21 13:49 Hydroxyzine HCl (Hydroxyzine Hcl 25 Mg Tab) 25 mg PO Q4H PRN PRN Reason: Anxiety Stop: 09/10/21 13:49 Last Admin: 08/12/21 13:56 Dose: 25 mg Documented by: Ibuprofen (Ibuprofen 200 Mg Tab) 200 mg PO Q6H PRN PRN Reason: Pain Stop: 09/19/21 14:42 Last Admin: 08/20/21 14:52 Dose: 200 mg Documented by: Lorazepam (Lorazepam 1 Mg Tab) 1 mg PO Q6 PRN PRN Reason: Anxiety/Agitation Stop: 09/10/21 14:02 Last Admin: 08/13/21 13:50 Dose: 1 mg Documented by: Lorazepam (Lorazepam 2 Mg/Ml Vial (Im Use)) 2 mg IM Q6 PRN PRN Reason: Agitation Stop: 09/11/21 14:09 Lorazepam (Lorazepam 1 Mg Tab) 1 mg PO HS PRN PRN Reason: Anxiety/Insomnia Stop: 09/16/21 15:38 Last Admin: 08/19/21 20:42 Dose: 1 mg Documented by: Magnesium Hydroxide (Magnesium Hydroxide Susp 30 Ml Udc) 30 ml PO DAILY PRN PRN Reason: Constipation Stop: 09/10/21 13:49 Last Admin: 08/12/21 22:31 Dose: 30 ml Documented by: Melatonin (Melatonin 3 Mg Tab) 9 mg PO HS REGINA Stop: 09/12/21 21:59 Last Admin: 08/19/21 20:44 Dose: 9 mg Documented by: Menthol (Cough Drop (Sugar Free) Christiano 24 Christiano/1 Box) 1 christiano BUCCAL Q1HWA PRN PRN Reason: Sore Throat Stop: 09/12/21 10:16 Olanzapine (Olanzapine 5 Mg Tablet) 5 mg PO Q6 PRN PRN Reason: Anxiety/Agitation Stop: 09/10/21 17:59 Last Admin: 08/16/21 11:33 Dose: 5 mg Documented by: Olanzapine (Olanzapine 5 Mg Tablet) 5 mg PO HS REGINA Stop: 09/19/21 21:59 Propranolol HCl (Propranolol Hcl 20 Mg Tab) 20 mg PO BID REGINA Stop: 09/13/21 08:59 Last Admin: 08/20/21 08:07 Dose: 20 mg Documented by: Risperidone (Risperidone 1 Mg Tablet) 1 mg PO BID REGINA Stop: 09/19/21 20:59 Sodium Chloride (Sodium Chloride 0.65% Na Soln 45 Ml ([place])) 1 - 2 sprays NA PRN PRN PRN Reason: Nasal Dryness/Congestion Stop: 09/10/21 13:49 Mental Health & Subst Abuse Tx Psychiatrist Name of Psychiatrist: [facility] Psychiatrist's Date of Appointment with Psychiatrist: 08/31/21 Time of Appointment with Psychiatrist: 2:45pm arrival time Psychiatric Appointment Comment: [address] [place] [address] Senior Gis Analyst Name of Senior Gis Analyst: Britany Conner Phone Number for Senior Gis Analyst: [phone] Post Discharge Appointments Primary Care Physician Name Of Family Doctor: [facility] Ramesh Primary [facility] Date of Appointment with PCP: 09/03/21 Time of Appointment with PCP: 9:45pm Provider Appointment Comment: [address] [place] [id number] Contact Information Discharge Discharge Address: [address] [place] [address], [place] [address]
[2021-08-20] MEDS: risperiDONE 1 MG TABLET PO SCH (20:56)
[2021-08-20] MEDS: MELATONIN 3 MG TAB PO SCH (21:04)
[2021-08-20] MEDS: LORazepam 1 MG TAB PO PRN (21:07)
[2021-08-20] MEDS ORDERED: OLANZapine 5 MG TABLET PO SCH (22:00)
[2021-08-21] MEDS: PROPRANOLOL HCL 20 MG TAB PO SCH ×2 (08:23→21:15)
[2021-08-21] MEDS: amLODIPine BESYLATE 5 MG TAB PO SCH (08:23)
[2021-08-21] MEDS: risperiDONE 1 MG TABLET PO SCH (08:24)
--- NOTE | 2021-08-21 11:34 | Psychiatric Progress Note ---
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 Admit on a 302 commitment for ongoing delusions, ideas of reference, periods of restlessness and inappropriate comments. Currently a 201. He is on MNPR due to unpredictable behavior, paranoia, bizarre behaviors and sexual preoccupations related to his psychosis, may be able to d/c soon. 08/21/21: sleep and psychosis improving. (1) Unspecified psychosis not due to a substance or known physiological condition: (2) Hypertension: 08/21/21: d/c Zyprexa. Shift Risperdal to 2 mg hs, start tonight since d/c of Zyprexa and comparative dose of Risperdal has been lower than total daily dose of Zyprexa. Increase propranolol as more helpful than Norvasc for symptoms, d/c Norvasc. Monitor PO intake. 08/20/21: reduce olanzapine to 5 mg qHS and increase risperidone to 1 mg BID. Will limit snacks and caloric beverages between meals given metabolic risk factors and significant weight gain since admission. Also increasing ativan to help with sleep. Added ibuprofen for foot pain. 08/19/21: reduce olanzapine to 10mg qHS and start risperidone 0.5 mg BID. 08/18/21: continue olanzapine and ativan. 08/17/21: continue with olanzapine 20mg total daily dose. Adding ativan 1 mg qhs prn given concern for andrew with poor sleep. 08/16/21: Due to sedation during the day will reduce zyprexa to 5 mg qAM & 15 mg qHS for continued total daily dose of 20mg. Continues to have periods of asymptomatic tachycardia, continuing to monitor and he is taking propranolol and amlodipine. Encouraging healthy diet to reduce metabolic risk factors as he remains uninterested in metformin trial. 08/15/21: some sedation this am, will dose Zyprexa 5 mg tomorrow am consider staying at that dose or shifting the remaining 5 mg to bedtime. Still working on safe transportation for period following discharge. Patient currently agreeing not to drive as "nothing to drive". CM. discussed his Hgb A1C and states "I'll change my diet", offered a trial of metformin and he declined. He continued to refuse conversion to another agent or AQUINO. Patient now understands risks/benefits of ongoing hospitalization and is agreeable to other aspects of treatment plan so converted to 201. 08/14/21: continue current medications and treatment plan as improving. He continues to deny desire/need for AQUINO. Reviewed that longer term use of Zyprexa may contribute to hyperglycemia. Likely metformin candidate. Increase propranolol for tachy to 20 mg BID. 08/13/21: d/c standing clonidine in favor of propranolol to target restlessness and tachy, continue current dose of Zyprexa given total daily dose with prns. Consider Depakote trial if no improvement in next 24 hrs. Today he is only agreeing to take melatonin at night as far as med changes. 08/12/21: based on hs and prn use, will increase Zyprexa to 10 mg BID (previously said he would refuse), he reports willing to do "what it takes to get out of here". Will add standing clonidine order as his BP and pulse remain elevated despite Norvasc. MNPR. 08/11/21: The patient was admitted to the [facility] ([facility] mental health unit) on q15 min checks (behavioral with suicide precautions) for safety. The patient will participate in group, recreational, and milieu therapies and will be offered additional individual and family sessions as clinically appropriate. Will be offered Zyprexa 5 mg po qhs tonight with additional available PO/IM for agitation. Ativan 1 mg q 6 prn anxiety/agitation as well. He cleared rather quickly with it previously in the ED so hopefully can have more detailed discussion around risks/benefits/alternatives and switch to Invega and AQUINO, particularly given A1C. His BP/P are likely somewhat related to psychosis/andrew but will monitor, continue BP meds from the floor and obtain additional collateral from patient's family/partner re: social history. [place] 4 days due to [place] so determination re: extending commitment will need to occur early on 08/16/21. Will need to consider report to [place] [employer]. Inventory Assets Strengths: has family support, maintained self in community for >15 years between episodes Needs: compliance with medication, confirmation of outpatient providers Risk Factors Assessment Male: Yes : Yes Do You Have Access To A Gun?: Yes (father to be removing over Thanksgiving) Mental Health Diagnoses: Yes Substance Use Disorders: No Previous Attempt: No Previous Psychiatric Hospitalization: Yes Protective Factors Assessment : No Responsible for Young Children: No Supportive Family: Yes Interval History Identifying Information Nabil is a 36 yo male with a history of disorganized psychosis who was brought to the ED for mental health assessment on a 302 warrant and admitted medically 08/09/21 for leukocytosis and mild rhabdo. He was transferred from the medical floor on 08/11/21 and is now on 201 status Chief Complaint "yeah I was gaining weight, I'm just more tired now, everything is going better". Review of Systems Sleep Information Total Hours of Sleep: 5.25 Sleep Comments: pt on q-15 minute checks Meal Information Percent Meal Consumed - Breakfast: 100 Percent Meal Consumed - Lunch: 100 Percent Meal Consumed - Dinner: 100 Nutrition Comment: pt asleep at this time. he did have a bowl of cereal prior to breakfast Subjective Subjective Patient was seen & assessed and interval progress reviewed with nursing and social work. No odd movements or sexualized behaviors. Zyprexa is being tapered in favor of a trial of Risperdal which he is tolerating so far. Remains tachy at times but overall treand in bP and restlessness improved. Physical Exam Psychiatric Orientation: alert and oriented x 3 Apperance: appropriately dressed and appropriately groomed Eye Contact: + fair eye contact Motor Behavior: steady gait and station and no abnormal motor movements Speech: normal rate/rhythm/volume of speech; no pressured speech Affect: + constricted affect Mood: no depressed mood Thought Process: + concrete thought process Thought Content: + preoccupation Suicidal Thoughts: denies suicidal thoughts Homicidal Thoughts: denies homicidal thoughts Hallucinations: no visual hallucinations Cognition: recent memory grossly intact, remote memory grossly intact and language grossly intact Estimated Intelligence: consistent with education level Insight: + impaired insight Judgement: + impaired judgement Vital Signs (Past 24 Hours) Last Vital Signs Temp 36.4 C L 08/21/21 06:42 Pulse 112 H 08/21/21 06:43 Resp 18 08/21/21 06:42 BP 129/96 08/21/21 06:43 Pulse Ox 95 08/19/21 21:02 Results & Data ([facility]) Current Inpatient Medications Current Inpatient Medications: Current Inpatient Medications Acetaminophen (Acetaminophen 325 Mg Tab) 650 mg PO Q4H PRN PRN Reason: Headache or Minor Fever Stop: 09/10/21 13:49 Last Admin: 08/20/21 16:50 Dose: 650 mg Documented by: Al Hydrox/Mg Hydrox/Simethicone (Aluminum/Magnesium Susp 30 Ml Udc) 30 ml PO Q4H PRN PRN Reason: GI Upset Stop: 09/10/21 13:49 Benztropine Mesylate (Benztropine Mesylate 1 Mg/Ml 2 Ml Amp) 1 mg IM Q6 PRN PRN Reason: Agitation Stop: 09/11/21 14:11 Bismuth Subsalicylate (Bismuth Subsalicylate Liqd 236 Ml) 15 ml PO PRN PRN PRN Reason: Loose Stool Stop: 09/10/21 13:49 Clonidine HCl (Clonidine Hcl 0.1 Mg Tab) 0.1 mg PO Q8H PRN PRN Reason: hypertension Stop: 09/10/21 13:59 Last Admin: 08/16/21 15:02 Dose: 0.1 mg Documented by: Haloperidol Lactate (Haloperidol Lactate 5 Mg/Ml 1 Ml Vial) 10 mg IM Q6 PRN PRN Reason: Agitation Stop: 09/11/21 14:09 Hydroxyzine HCl (Hydroxyzine Hcl 25 Mg Tab) 50 mg PO HSZ PRN PRN Reason: Insomnia Stop: 09/10/21 13:49 Hydroxyzine HCl (Hydroxyzine Hcl 25 Mg Tab) 25 mg PO Q4H PRN PRN Reason: Anxiety Stop: 09/10/21 13:49 Last Admin: 08/12/21 13:56 Dose: 25 mg Documented by: Ibuprofen (Ibuprofen 200 Mg Tab) 200 mg PO Q6H PRN PRN Reason: Pain Stop: 09/19/21 14:42 Last Admin: 08/20/21 14:52 Dose: 200 mg Documented by: Lorazepam (Lorazepam 1 Mg Tab) 1 mg PO Q6 PRN PRN Reason: Anxiety/Agitation Stop: 09/10/21 14:02 Last Admin: 08/13/21 13:50 Dose: 1 mg Documented by: Lorazepam (Lorazepam 2 Mg/Ml Vial (Im Use)) 2 mg IM Q6 PRN PRN Reason: Agitation Stop: 09/11/21 14:09 Lorazepam (Lorazepam 1 Mg Tab) 2 mg PO HS PRN PRN Reason: Anxiety/Insomnia Stop: 09/16/21 15:38 Last Admin: 08/20/21 21:07 Dose: 2 mg Documented by: Magnesium Hydroxide (Magnesium Hydroxide Susp 30 Ml Udc) 30 ml PO DAILY PRN PRN Reason: Constipation Stop: 09/10/21 13:49 Last Admin: 08/12/21 22:31 Dose: 30 ml Documented by: Melatonin (Melatonin 3 Mg Tab) 9 mg PO HS REGINA Stop: 09/12/21 21:59 Last Admin: 08/20/21 21:04 Dose: 9 mg Documented by: Menthol (Cough Drop (Sugar Free) Christiano 24 Christiano/1 Box) 1 christiano BUCCAL Q1HWA PRN PRN Reason: Sore Throat Stop: 09/12/21 10:16 Olanzapine (Olanzapine 5 Mg Tablet) 5 mg PO Q6 PRN PRN Reason: Anxiety/Agitation Stop: 09/10/21 17:59 Last Admin: 08/16/21 11:33 Dose: 5 mg Documented by: Sodium Chloride (Sodium Chloride 0.65% Na Soln 45 Ml ([place])) 1 - 2 sprays NA PRN PRN PRN Reason: Nasal Dryness/Congestion Stop: 09/10/21 13:49 Mental Health & Subst Abuse Tx Psychiatrist Name of Psychiatrist: [facility]rist[facility] Date of Appointment with Psychiatrist: 08/31/21 Time of Appointment with Psychiatrist: 2:45pm arrival time Psychiatric Appointment Comment: [address] [place] [address] Refinery Process Engineer Name of Refinery Process Engineer: Britany Conner Phone Number for Refinery Process Engineer: [phone] Post Discharge Appointments Primary Care Physician Name Of Family Doctor: M[facility] Ramesh Primary [facility] Date of Appointment with PCP: 09/03/21 Time of Appointment with PCP: 9:45pm Provider Appointment Comment: [address] [place] [id number] Contact Information Discharge Discharge Address: [address] [place] [address], [place] [id number]
[2021-08-21] MEDS: ACETAMINOPHEN 325 MG TAB PO PRN (16:27)
[2021-08-21] MEDS: LORazepam 1 MG TAB PO PRN (21:17)
[2021-08-21] MEDS: MELATONIN 3 MG TAB PO SCH (21:26)
[2021-08-21] MEDS ORDERED: risperiDONE 2 MG TABLET PO SCH (22:00)
[2021-08-22] MEDS: PROPRANOLOL HCL 20 MG TAB PO SCH ×2 (09:21→20:19)
[2021-08-22] MEDS: ACETAMINOPHEN 325 MG TAB PO PRN ×2 (11:11→19:03)
[2021-08-22] MEDS ORDERED: BENZTROPINE MESYLATE 1 MG TAB PO PRN (13:43)
[2021-08-22] MEDS: risperiDONE 1 MG TABLET PO PRN (14:00)
--- NOTE | 2021-08-22 15:04 | Psychiatric Progress Note ---
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 Admit on a 302 commitment for ongoing delusions, ideas of reference, periods of restlessness and inappropriate comments. Currently a 201. He is on MNPR due to unpredictable behavior, paranoia, bizarre behaviors and sexual preoccupations related to his psychosis, may be able to d/c soon. 08/22/21: some breakthrough following d/c of Zyprexa. BP and pulse improving. (1) Unspecified psychosis not due to a substance or known physiological condition: (2) Hypertension: 08/22/21: prn Risperdal ordered. Increase Risperdal to 3 mg this hs. hasn't required cogentin. 08/21/21: d/c Zyprexa. Shift Risperdal to 2 mg hs, start tonight since d/c of Zyprexa and comparative dose of Risperdal has been lower than total daily dose of Zyprexa. Increase propranolol as more helpful than Norvasc for symptoms, d/c Norvasc. Monitor PO intake. 08/20/21: reduce olanzapine to 5 mg qHS and increase risperidone to 1 mg BID. Will limit snacks and caloric beverages between meals given metabolic risk factors and significant weight gain since admission. Also increasing ativan to help with sleep. Added ibuprofen for foot pain. 08/19/21: reduce olanzapine to 10mg qHS and start risperidone 0.5 mg BID. 08/18/21: continue olanzapine and ativan. 08/17/21: continue with olanzapine 20mg total daily dose. Adding ativan 1 mg qhs prn given concern for andrew with poor sleep. 08/16/21: Due to sedation during the day will reduce zyprexa to 5 mg qAM & 15 mg qHS for continued total daily dose of 20mg. Continues to have periods of asymptomatic tachycardia, continuing to monitor and he is taking propranolol and amlodipine. Encouraging healthy diet to reduce metabolic risk factors as he remains uninterested in metformin trial. 08/15/21: some sedation this am, will dose Zyprexa 5 mg tomorrow am consider staying at that dose or shifting the remaining 5 mg to bedtime. Still working on safe transportation for period following discharge. Patient currently agreeing not to drive as "nothing to drive". CM. discussed his Hgb A1C and states "I'll change my diet", offered a trial of metformin and he declined. He continued to refuse conversion to another agent or AQUINO. Patient now understands risks/benefits of ongoing hospitalization and is agreeable to other aspects of treatment plan so converted to 201. 08/14/21: continue current medications and treatment plan as improving. He continues to deny desire/need for AQUINO. Reviewed that longer term use of Zyprexa may contribute to hyperglycemia. Likely metformin candidate. Increase propranolol for tachy to 20 mg BID. 08/13/21: d/c standing clonidine in favor of propranolol to target restlessness and tachy, continue current dose of Zyprexa given total daily dose with prns. Consider Depakote trial if no improvement in next 24 hrs. Today he is only agreeing to take melatonin at night as far as med changes. 08/12/21: based on hs and prn use, will increase Zyprexa to 10 mg BID (previously said he would refuse), he reports willing to do "what it takes to get out of here". Will add standing clonidine order as his BP and pulse remain elevated despite Norvasc. MNPR. 08/11/21: The patient was [facility] ([facility] mental [facility]) on q15 min checks (behavioral with suicide precautions) for safety. The patient will participate in group, recreational, and milieu therapies and will be offered additional individual and family sessions as clinically appropriate. Will be offered Zyprexa 5 mg po qhs tonight with additional available PO/IM for agitation. Ativan 1 mg q 6 prn anxiety/agitation as well. He cleared rather quickly with it previously in the ED so hopefully can have more detailed discussion around risks/benefits/alternatives and switch to Invega and AQUINO, particularly given A1C. His BP/P are likely somewhat related to p sychosis/andrew but will monitor, continue BP meds from the floor and obtain additional collateral from patient's family/partner re: social history. The county is closed for next 4 days due to [place] so determination re: extending commitment will need to occur early on 08/16/21. Will need to consider report to [place] [employer]. Inventory Assets Strengths: has family support, maintained self in community for >15 years between episodes Needs: compliance with medication, confirmation of outpatient providers Risk Factors Assessment Male: Yes : Yes Do You Have Access To A Gun?: Yes (father to be removing over Thanksgiving) Mental Health Diagnoses: Yes Substance Use Disorders: No Previous Attempt: No Previous Psychiatric Hospitalization: Yes Protective Factors Assessment : No Responsible for Young Children: No Supportive Family: Yes Interval History Identifying Information Nabil is a 36 yo male with a history of disorganized psychosis who was brought to the ED for mental health assessment on a 302 warrant and admitted medically 08/09/21 for leukocytosis and mild rhabdo. He was transferred from the medical floor on 08/11/21 and is now on 201 status Chief Complaint "I"m oK"-making more eye movements again as if responding to stimuli Review of Systems Sleep Information Total Hours of Sleep: 7.5 Sleep Comments: pt on q-15 minute checks Meal Information Percent Meal Consumed - Breakfast: 100 Percent Meal Consumed - Lunch: 100 Percent Meal Consumed - Dinner: 100 Nutrition Comment: pt asleep at this time. he did have a bowl of cereal prior to breakfast Subjective Subjective Patient was seen & assessed and interval progress reviewed with nursing and social work. More breakthrough symptoms today, staring/leering at female peers/staff making them feel uncomfortable, seemed to tug at his groin and vocalize oddly. Slept. Was tearful last pm per staff, apparently focussed on discharged. He was not able to engage in a conversation about family meeting today or rationally discuss his driving. "Maybe my car isn't totalled." and doesn't believe he can get transportation where he lives, etc. Focussed on his girlfriend moving out but has no confirmation of this. Physical Exam Psychiatric Orientation: alert, oriented to person and oriented to place Apperance: appropriately dressed and appropriately groomed Eye Contact: + fair eye contact Motor Behavior: steady gait and station and no abnormal motor movements Speech: normal rate/rhythm/volume of speech Affect: + constricted affect Mood: + anxious mood Thought Process: + looseness of associations and + concrete thought process Thought Content: + paranoid and + delusions Suicidal Thoughts: denies suicidal thoughts Homicidal Thoughts: denies homicidal thoughts Hallucinations: + auditory hallucinations; no visual hallucinations Cognition: language grossly intact; + attention not intact Insight: + poor insight Judgement: + poor judgement Vital Signs (Past 24 Hours) Last Vital Signs Temp 36.6 C 08/22/21 06:47 Pulse 106 H 08/22/21 06:48 Resp 16 08/22/21 06:47 BP 120/81 08/22/21 06:48 Pulse Ox 95 08/19/21 21:02 Results & Data ([facility]) Current Inpatient Medications Current Inpatient Medications: Current Inpatient Medications Acetaminophen (Acetaminophen 325 Mg Tab) 650 mg PO Q4H PRN PRN Reason: Headache or Minor Fever Stop: 09/10/21 13:49 Last Admin: 08/22/21 11:11 Dose: 650 mg Documented by: Al Hydrox/Mg Hydrox/Simethicone (Aluminum/Magnesium Susp 30 Ml Udc) 30 ml PO Q4H PRN PRN Reason: GI Upset Stop: 09/10/21 13:49 Benztropine Mesylate (Benztropine Mesylate 1 Mg/Ml 2 Ml Amp) 1 mg IM Q6 PRN PRN Reason: Agitation Stop: 09/11/21 14:11 Benztropine Mesylate (Benztropine Mesylate 1 Mg Tab) 1 mg PO Q6 PRN PRN Reason: muscle tight/tongue thick Stop: 09/21/21 13:42 Bismuth Subsalicylate (Bismuth Subsalicylate Liqd 236 Ml) 15 ml PO PRN PRN PRN Reason: Loose Stool Stop: 09/10/21 13:49 Haloperidol Lactate (Haloperidol Lactate 5 Mg/Ml 1 Ml Vial) 10 mg IM Q6 PRN PRN Reason: Agitation Stop: 09/11/21 14:09 Hydroxyzine HCl (Hydroxyzine Hcl 25 Mg Tab) 50 mg PO HSZ PRN PRN Reason: Insomnia Stop: 09/10/21 13:49 Hydroxyzine HCl (Hydroxyzine Hcl 25 Mg Tab) 25 mg PO Q4H PRN PRN Reason: Anxiety Stop: 09/10/21 13:49 Last Admin: 08/12/21 13:56 Dose: 25 mg Documented by: Ibuprofen (Ibuprofen 200 Mg Tab) 200 mg PO Q6H PRN PRN Reason: Pain Stop: 09/19/21 14:42 Last Admin: 08/20/21 14:52 Dose: 200 mg Documented by: Lorazepam (Lorazepam 1 Mg Tab) 1 mg PO Q6 PRN PRN Reason: Anxiety/Agitation Stop: 09/10/21 14:02 Last Admin: 08/13/21 13:50 Dose: 1 mg Documented by: Lorazepam (Lorazepam 2 Mg/Ml Vial (Im Use)) 2 mg IM Q6 PRN PRN Reason: Agitation Stop: 09/11/21 14:09 Lorazepam (Lorazepam 1 Mg Tab) 2 mg PO HS PRN PRN Reason: Anxiety/Insomnia Stop: 09/16/21 15:38 Last Admin: 08/21/21 21:17 Dose: 2 mg Documented by: Magnesium Hydroxide (Magnesium Hydroxide Susp 30 Ml Udc) 30 ml PO DAILY PRN PRN Reason: Constipation Stop: 09/10/21 13:49 Last Admin: 08/12/21 22:31 Dose: 30 ml Documented by: Melatonin (Melatonin 3 Mg Tab) 9 mg PO HS REGINA Stop: 09/12/21 21:59 Last Admin: 08/21/21 21:26 Dose: 9 mg Documented by: Menthol (Cough Drop (Sugar Free) Christiano 24 Christiano/1 Box) 1 christiano BUCCAL Q1HWA PRN PRN Reason: Sore Throat Stop: 09/12/21 10:16 Propranolol HCl (Propranolol Hcl 20 Mg Tab) 40 mg PO BID REGINA Stop: 09/20/21 20:59 Last Admin: 08/22/21 09:21 Dose: 40 mg Documented by: Risperidone (Risperidone 1 Mg Tablet) 1 mg PO Q6 PRN PRN Reason: Anxiety/Agitation Stop: 09/21/21 17:59 Last Admin: 08/22/21 14:00 Dose: 1 mg Documented by: Risperidone (Risperidone 3 Mg Tablet) 3 mg PO HS REGINA Stop: 09/21/21 21:59 Sodium Chloride (Sodium Chloride 0.65% Na Soln 45 Ml ([place])) 1 - 2 sprays NA PRN PRN PRN Reason: Nasal Dryness/Congestion Stop: 09/10/21 13:49 Mental Health & Subst Abuse Tx Psychiatrist Name of Psychiatrist: [facility] Psych[facility]rist[facility] Date of Appointment with Psychiatrist: 08/31/21 Time of Appointment with Psychiatrist: 2:45pm arrival time [facility] [address] [facility] [id number] Side Seam Machine Operator Name of Side Seam Machine Operator: Britany Conner Phone Number for Side Seam Machine Operator: [phone] Post Discharge Appointments Primary Care Physician Name Of Family Doctor: [facility] Ramesh Primary Care Date of Appointment with PCP: 09/03/21 Time of Appointment with PCP: 9:45pm Provider Appointment Comment: [address] [place] [address] Contact Information Discharge Discharge Address: [address] [place] [address], [place] [id number]
[2021-08-22] MEDS ORDERED: CARBAMIDE PEROXIDE 6.5% 15 ML BTL OT PRN (16:04)
[2021-08-22] MEDS: LORazepam 1 MG TAB PO PRN ×2 (16:59→21:19)
[2021-08-22] MEDS: IBUPROFEN 200 MG TAB PO PRN (17:58)
[2021-08-22] MEDS: MELATONIN 3 MG TAB PO SCH (21:19)
[2021-08-22] MEDS: risperiDONE 3 MG TABLET PO SCH (21:19)
[2021-08-23] MEDS: PROPRANOLOL HCL 20 MG TAB PO SCH ×2 (09:12→20:53)
[2021-08-23] MEDS: risperiDONE 1 MG TABLET PO PRN (12:03)
--- NOTE | 2021-08-23 12:50 | Psychiatric Progress Note ---
Date of Service August 23, 2021 Impression / Recommendations Impression 36 yo male with ongoing psychosis, hypersexual and poor sleep initially suggestive of andrew but otherwise no clear hx of bipolar, patient making less delusional statements and gradually more organized, still very concrete with periods of breakthrough symptoms. Remains on MNPR. Impression: variable psychosis shift to shift Plan: continue current meds and treatment plan. (1) Unspecified psychosis not due to a substance or known physiological condition: (2) Hypertension: Risk Factors Assessment Male: Yes : Yes Do You Have Access To A Gun?: Yes (father to be removing over Thanksgiving) Mental Health Diagnoses: Yes Substance Use Disorders: No Previous Attempt: No Previous Psychiatric Hospitalization: Yes Protective Factors Assessment : No Responsible for Young Children: No Supportive Family: Yes Interval History Identifying Information 36 yo male admit on transfer form the medical floor for ongoing psychosis. Chief Complaint "I don't know if she's moving out, I do want to drive as where I live otherwise can't get around". Review of Systems Sleep Information Total Hours of Sleep: 7 Sleep Comments: pt on q-15 minute checks Meal Information Percent Meal Consumed - Breakfast: 100 Percent Meal Consumed - Lunch: 100 Percent Meal Consumed - Dinner: 100 Nutrition Comment: pt asleep at this time. he did have a bowl of cereal prior to breakfast Subjective Subjective Patient was seen & assessed and interval progress reviewed with treatment team. Continued to have regressed behaviors yesterday but less staring and no hypersexual behaviors after prn Risperdal. Tolerating increase to 3 mg last night. Is now amenable to meeting with his father. Clarifying transportation for after discharge. Doesn't understand need to involve girlfriend despite them living together. Physical Exam Psychiatric Orientation: alert Apperance: appropriately dressed and appropriately groomed Eye Contact: + fair eye contact Motor Behavior: steady gait and station and no abnormal motor movements Speech: normal rate/rhythm/volume of speech Affect: + constricted affect Mood: no depressed mood Thought Process: + concrete thought process Thought Content: + delusions Suicidal Thoughts: denies suicidal thoughts Homicidal Thoughts: denies homicidal thoughts Hallucinations: + auditory hallucinations; no visual hallucinations Insight: + impaired insight Judgement: + impaired judgement Vital Signs (Past 24 Hours) Last Vital Signs Temp 36.8 C 08/23/21 06:43 Pulse 90 08/23/21 06:43 Resp 16 08/23/21 06:43 BP 124/86 08/23/21 06:43 Pulse Ox 95 08/19/21 21:02 Results & Data ([facility]) Current Inpatient Medications Current Inpatient Medications: Current Inpatient Medications Acetaminophen (Acetaminophen 325 Mg Tab) 650 mg PO Q4H PRN PRN Reason: Headache or Minor Fever Stop: 09/10/21 13:49 Last Admin: 08/22/21 19:03 Dose: 650 mg Documented by: Al Hydrox/Mg Hydrox/Simethicone (Aluminum/Magnesium Susp 30 Ml Udc) 30 ml PO Q4H PRN PRN Reason: GI Upset Stop: 09/10/21 13:49 Benztropine Mesylate (Benztropine Mesylate 1 Mg/Ml 2 Ml Amp) 1 mg IM Q6 PRN PRN Reason: Agitation Stop: 09/11/21 14:11 Benztropine Mesylate (Benztropine Mesylate 1 Mg Tab) 1 mg PO Q6 PRN PRN Reason: muscle tight/tongue thick Stop: 09/21/21 13:42 Bismuth Subsalicylate (Bismuth Subsalicylate Liqd 236 Ml) 15 ml PO PRN PRN PRN Reason: Loose Stool Stop: 09/10/21 13:49 Carbamide Peroxide (Carbamide Peroxide 6.5% 15 Ml Btl) 0 drops OT PRN PRN PRN Reason: Ear wax removal Stop: 08/26/21 16:03 Last Admin: 08/22/21 19:30 Dose: 5 drops Documented by: Haloperidol Lactate (Haloperidol Lactate 5 Mg/Ml 1 Ml Vial) 10 mg IM Q6 PRN PRN Reason: Agitation Stop: 09/11/21 14:09 Hydroxyzine HCl (Hydroxyzine Hcl 25 Mg Tab) 50 mg PO HSZ PRN PRN Reason: Insomnia Stop: 09/10/21 13:49 Hydroxyzine HCl (Hydroxyzine Hcl 25 Mg Tab) 25 mg PO Q4H PRN PRN Reason: Anxiety Stop: 09/10/21 13:49 Last Admin: 08/12/21 13:56 Dose: 25 mg Documented by: Ibuprofen (Ibuprofen 200 Mg Tab) 200 mg PO Q6H PRN PRN Reason: Pain Stop: 09/19/21 14:42 Last Admin: 08/22/21 17:58 Dose: 200 mg Documented by: Lorazepam (Lorazepam 1 Mg Tab) 1 mg PO Q6 PRN PRN Reason: Anxiety/Agitation Stop: 09/10/21 14:02 Last Admin: 08/22/21 16:59 Dose: 1 mg Documented by: Lorazepam (Lorazepam 2 Mg/Ml Vial (Im Use)) 2 mg IM Q6 PRN PRN Reason: Agitation Stop: 09/11/21 14:09 Lorazepam (Lorazepam 1 Mg Tab) 2 mg PO HS PRN PRN Reason: Anxiety/Insomnia Stop: 09/16/21 15:38 Last Admin: 08/22/21 21:19 Dose: 2 mg Documented by: Magnesium Hydroxide (Magnesium Hydroxide Susp 30 Ml Udc) 30 ml PO DAILY PRN PRN Reason: Constipation Stop: 09/10/21 13:49 Last Admin: 08/12/21 22:31 Dose: 30 ml Documented by: Melatonin (Melatonin 3 Mg Tab) 9 mg PO HS REGINA Stop: 09/12/21 21:59 Last Admin: 08/22/21 21:19 Dose: 9 mg Documented by: Menthol (Cough Drop (Sugar Free) Christiano 24 Christiano/1 Box) 1 christiano BUCCAL Q1HWA PRN PRN Reason: Sore Throat Stop: 09/12/21 10:16 Propranolol HCl (Propranolol Hcl 20 Mg Tab) 40 mg PO BID REGINA Stop: 09/20/21 20:59 Last Admin: 08/23/21 09:12 Dose: 40 mg Documented by: Risperidone (Risperidone 1 Mg Tablet) 1 mg PO Q6 PRN PRN Reason: Anxiety/Agitation Stop: 09/21/21 17:59 Last Admin: 08/23/21 12:03 Dose: 1 mg Documented by: Risperidone (Risperidone 3 Mg Tablet) 3 mg PO HS REGINA Stop: 09/21/21 21:59 Last Admin: 08/22/21 21:19 Dose: 3 mg Documented by: Sodium Chloride (Sodium Chloride 0.65% Na Soln 45 Ml ([place])) 1 - 2 sprays NA PRN PRN PRN Reason: Nasal Dryness/Congestion Stop: 09/10/21 13:49 Mental Health & Subst Abuse Tx Psychiatrist Name of Psychiatrist: [facility] Psychiatrist's Date of Appointment with Psychiatrist: 08/31/21 Time of Appointment with Psychiatrist: 2:45pm arrival time Psychiatric Appointment Comment: [address] [place] [address] Syrup Filterer Name of Syrup Filterer: Britany Conner Phone Number for Syrup Filterer: [phone] Post Discharge Appointments Primary Care Physician Name Of Family Doctor: MARC[facility] Ramesh Primary [facility] Date of Appointment with PCP: 09/03/21 Time of Appointment with PCP: 9:45pm Provider Appointment Comment: [address] [place] [address] Contact Information Discharge Discharge Address: [address] [place] [address], [place] [id number]
[2021-08-23] MEDS: MELATONIN 3 MG TAB PO SCH (20:53)
[2021-08-23] MEDS: risperiDONE 3 MG TABLET PO SCH (20:53)
[2021-08-23] MEDS: LORazepam 1 MG TAB PO PRN (20:53)
[2021-08-24] MEDS: PROPRANOLOL HCL 20 MG TAB PO SCH ×2 (08:57→22:33)
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
[2021-08-24] MEDS: MELATONIN 3 MG TAB PO SCH (22:34)
[2021-08-24] MEDS: risperiDONE 3 MG TABLET PO SCH (22:34)
[2021-08-25] MEDS: ACETAMINOPHEN 325 MG TAB PO PRN (07:42)
[2021-08-25] MEDS: PROPRANOLOL HCL 20 MG TAB PO SCH ×2 (08:20→22:20)
--- NOTE | 2021-08-25 14:33 | Psychiatric Progress Note ---
Date of Service August 25, 2021 Impression / Recommendations Impression 36 yo male with ongoing psychosis, hypersexual and poor sleep initially suggestive of andrew but otherwise no clear hx of bipolar, patient making less delusional statements and gradually more organized, still very concrete with periods of breakthrough symptoms. Remains on MNPR. Impression: ongoing improvement Plan: continue current meds and treatment plan. No evidence of EPS. Risk Factors Assessment Male: Yes : Yes Do You Have Access To A Gun?: Yes (father to be removing over Thanksgiving) Mental Health Diagnoses: Yes Substance Use Disorders: No Previous Attempt: No Previous Psychiatric Hospitalization: Yes Protective Factors Assessment : No Responsible for Young Children: No Supportive Family: Yes Interval History Identifying Information 36 yo male admit on transfer form the medical floor for ongoing psychosis. Chief Complaint "things are good". Review of Systems Sleep Information Total Hours of Sleep: 5 Sleep Comments: pt on q-15 minute checks Meal Information Percent Meal Consumed - Breakfast: 100 Percent Meal Consumed - Lunch: 100 Percent Meal Consumed - Dinner: 100 Nutrition Comment: pt asleep at this time. he did have a bowl of cereal prior to breakfast Subjective Subjective Patient was seen & assessed and interval progress reviewed with treatment team. Patient remains cooperative with meds and unit routine. No disorganized behaviors and better boundary awareness around peers. He was able to deal with stress in family meeting well. Physical Exam Vital Signs (Past 24 Hours) Last Vital Signs Temp 36.6 C 08/25/21 06:44 Pulse 97 H 08/25/21 06:44 Resp 18 08/25/21 06:44 BP 112/77 08/25/21 06:44 Pulse Ox 95 08/19/21 21:02 Results & Data ([facility]) Current Inpatient Medications Current Inpatient Medications: Current Inpatient Medications Acetaminophen (Acetaminophen 325 Mg Tab) 650 mg PO Q4H PRN PRN Reason: Headache or Minor Fever Stop: 09/10/21 13:49 Last Admin: 08/25/21 07:42 Dose: 650 mg Documented by: Al Hydrox/Mg Hydrox/Simethicone (Aluminum/Magnesium Susp 30 Ml Udc) 30 ml PO Q4H PRN PRN Reason: GI Upset Stop: 09/10/21 13:49 Benztropine Mesylate (Benztropine Mesylate 1 Mg/Ml 2 Ml Amp) 1 mg IM Q6 PRN PRN Reason: Agitation Stop: 09/11/21 14:11 Benztropine Mesylate (Benztropine Mesylate 1 Mg Tab) 1 mg PO Q6 PRN PRN Reason: muscle tight/tongue thick Stop: 09/21/21 13:42 Bismuth Subsalicylate (Bismuth Subsalicylate Liqd 236 Ml) 15 ml PO PRN PRN PRN Reason: Loose Stool Stop: 09/10/21 13:49 Haloperidol Lactate (Haloperidol Lactate 5 Mg/Ml 1 Ml Vial) 10 mg IM Q6 PRN PRN Reason: Agitation Stop: 09/11/21 14:09 Hydroxyzine HCl (Hydroxyzine Hcl 25 Mg Tab) 50 mg PO HSZ PRN PRN Reason: Insomnia Stop: 09/10/21 13:49 Last Admin: 08/23/21 22:17 Dose: 50 mg Documented by: Hydroxyzine HCl (Hydroxyzine Hcl 25 Mg Tab) 25 mg PO Q4H PRN PRN Reason: Anxiety Stop: 09/10/21 13:49 Last Admin: 08/12/21 13:56 Dose: 25 mg Documented by: Ibuprofen (Ibuprofen 200 Mg Tab) 200 mg PO Q6H PRN PRN Reason: Pain Stop: 09/19/21 14:42 Last Admin: 08/22/21 17:58 Dose: 200 mg Documented by: Lorazepam (Lorazepam 1 Mg Tab) 1 mg PO Q6 PRN PRN Reason: Anxiety/Agitation Stop: 09/10/21 14:02 Last Admin: 08/22/21 16:59 Dose: 1 mg Documented by: Lorazepam (Lorazepam 2 Mg/Ml Vial (Im Use)) 2 mg IM Q6 PRN PRN Reason: Agitation Stop: 09/11/21 14:09 Lorazepam (Lorazepam 1 Mg Tab) 2 mg PO HS PRN PRN Reason: Anxiety/Insomnia Stop: 09/16/21 15:38 Last Admin: 08/23/21 20:53 Dose: 2 mg Documented by: Magnesium Hydroxide (Magnesium Hydroxide Susp 30 Ml Udc) 30 ml PO DAILY PRN PRN Reason: Constipation Stop: 09/10/21 13:49 Last Admin: 08/12/21 22:31 Dose: 30 ml Documented by: Melatonin (Melatonin 3 Mg Tab) 9 mg PO HS REGINA Stop: 09/12/21 21:59 Last Admin: 08/24/21 22:34 Dose: 9 mg Documented by: Menthol (Cough Drop (Sugar Free) Christiano 24 Christiano/1 Box) 1 christiano BUCCAL Q1HWA PRN PRN Reason: Sore Throat Stop: 09/12/21 10:16 Propranolol HCl (Propranolol Hcl 20 Mg Tab) 40 mg PO BID REGINA Stop: 09/20/21 20:59 Last Admin: 08/25/21 08:20 Dose: 40 mg Documented by: Risperidone (Risperidone 1 Mg Tablet) 1 mg PO Q6 PRN PRN Reason: Anxiety/Agitation Stop: 09/21/21 17:59 Last Admin: 08/23/21 12:03 Dose: 1 mg Documented by: Risperidone (Risperidone 3 Mg Tablet) 3 mg PO HS REGINA Stop: 09/21/21 21:59 Last Admin: 08/24/21 22:34 Dose: 3 mg Documented by: Sodium Chloride (Sodium Chloride 0.65% Na Soln 45 Ml ([place])) 1 - 2 sprays NA PRN PRN PRN Reason: Nasal Dryness/Congestion Stop: 09/10/21 13:49 Mental Health & Subst Abuse Tx Psychiatrist Name of Psychiatrist: [facility] Psychiatrist's Date of Appointment with Psychiatrist: 08/31/21 Time of Appointment with Psychiatrist: 2:45 pm Psychiatric Appointment Comment: Van will pick you up at your home for 2:45 appt. Be ready by 1:45pm Electronics Engineering Manager Name of Electronics Engineering Manager: Britany Conner Phone Number for Electronics Engineering Manager: [phone] Case Management Appointment Comment: Will follow up with you to schedule Post Discharge Appointments Primary Care Physician Name Of Family Doctor: M[facility] Ramesh Primary [facility] Date of Appointment with PCP: 09/03/21 Time of Appointment with PCP: 9:45 am Provider Appointment Comment: Van will pick you up at your home for 9:45 appt. Be ready by 8:45am Contact Information Discharge Discharge Address: [address] [place] [address], [place] [address]
[2021-08-25] MEDS: risperiDONE 3 MG TABLET PO SCH (22:21)
[2021-08-25] MEDS: MELATONIN 3 MG TAB PO SCH (22:21)
[2021-08-26] MEDS ORDERED: risperiDONE 3 MG TABLET PO SCH
[2021-08-26] MEDS: PROPRANOLOL HCL 20 MG TAB PO SCH (08:58)
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
[2021-08-26] MEDS ORDERED: PROPRANOLOL HCL 20 MG TAB PO SCH ×2 (22:00)
[2021-08-26] MEDS ORDERED: risperiDONE 3 MG TABLET PO ONE (22:00)
== END 2021-08-26 11:18 | disposition home or self-care (01) | DRG 885 ==
LOC: 3S 08-11 13:50 → SUATTDRO 08-11 13:50